=== PATIENT | male | born 1950 | race Caucasian/White ===

== ENCOUNTER 2017-08-12 22:58 | Observation (INO) | payer OTHER ==
[2017-08-12] MEDS ORDERED: METOCLOPRAMIDE 5 MG/ML 2 ML VIAL IVP STA (23:19)
[2017-08-12] MEDS ORDERED: diphenhydrAMINE 50 MG/ML 1 ML VIAL IVP STA (23:19)
[2017-08-12] MEDS ORDERED: SODIUM CHLORIDE 0.9% 1,000 ML IV STA (23:19)
[2017-08-12] MEDS ORDERED: MORPHINE SULFATE 2 MG/ML SYRINGE IVP STA (23:20)
--- NOTE | 2017-08-12 23:30 | ED ---
General Adult HPI - General Chief complaint: Headache Stated complaint: Headache Time Seen by Provider: 08/12/17 23:09 Source: patient, RN notes reviewed, old records reviewed Mode of arrival: ambulatory Limitations: no limitations - History of Present Illness Initial comments: This is a 66-year-old male the ER for evaluation. Patient was essay for evasive headache severe headache worse headache of his life. Patient headache last week that was similar but not as bad. Patient has no chronic history of headaches no trauma. Mild nausea and occasional vomiting. No fevers. Noted recent travel history or sick contacts - Related Data Home Medications Medication Instructions Recorded Confirmed No Known Home Medications [No 08/12/17 08/12/17 Known Home Medications] Allergies Allergy/AdvReac Type Severity Reaction Status Date / Time No Known Allergies Allergy Verified 08/12/17 23:23 Review of Systems ROS Statement: Those systems with pertinent positive or pertinent negative responses have been documented in the HPI. ROS Other: All systems not noted in ROS Statement are negative. Past Medical History Past Medical History: No Reported History History of Any Multi-Drug Resistant Organisms: None Reported Past Surgical History: Back Surgery, Hernia Repair Past Psychological History: No Psychological Hx Reported Smoking Status: Never smoker Past Alcohol Use History: None Reported Past Drug Use History: Unable to Obtain General Exam Limitations: no limitations General appearance: alert, in no apparent distress Head exam: Present: atraumatic, normocephalic, normal inspection Eye exam: Present: normal appearance, PERRL, EOMI. Absent: scleral icterus, conjunctival injection, periorbital swelling ENT exam: Present: normal exam, mucous membranes moist Neck exam: Present: normal inspection. Absent: tenderness, meningismus, lymphadenopathy Respiratory exam: Present: normal lung sounds bilaterally. Absent: respiratory distress, wheezes, rales, rhonchi, stridor Cardiovascular Exam: Present: regular rate, normal rhythm, normal heart sounds. Absent: systolic murmur, diastolic murmur, rubs, gallop, clicks GI/Abdominal exam: Present: soft, normal bowel sounds. Absent: distended, tenderness, guarding, rebound, rigid Extremities exam: Present: normal inspection, full ROM, normal capillary refill. Absent: tenderness, pedal edema, joint swelling, calf tenderness Back exam: Present: normal inspection Neurological exam: Present: alert, oriented X3, CN II-XII intact Psychiatric exam: Present: normal affect, normal mood Skin exam: Present: warm, dry, intact, normal color. Absent: rash Course Vital Signs 08/12/17 08/13/17 08/13/17 23:04 00:37 01:11 Temperature 98.1 F Pulse Rate 45 L 53 L 62 Respiratory 18 18 Rate Blood Pressure 138/88 129/72 O2 Sat by Pulse 96 97 97 Oximetry 08/13/17 01:58 Temperature 97.1 F L Pulse Rate 53 L Respiratory 14 Rate Blood Pressure 114/57 O2 Sat by Pulse 100 Oximetry Medical Decision Making - Medical Decision Making 66 male the ER for evasive acute headache. Headache is improved control. Patient does have erythematous venous system unsure of etiology, patient will be admitted for monitoring, MRI in the morning - Lab Data Result diagrams: 08/12/17 23:46 08/12/17 23:46 Lab Results 08/12/17 08/12/17 08/12/17 Range/Units 23:46 23:46 23:46 WBC 8.8 (3.8-10.6) k/uL RBC 4.66 (4.30-5.90) m/uL Hgb 14.3 (13.0-17.5) gm/dL Hct 42.5 (39.0-53.0) % MCV 91.2 (80.0-100.0) fL MCH 30.7 (25.0-35.0) pg MCHC 33.6 (31.0-37.0) g/dL RDW 13.7 (11.5-15.5) % Plt Count 220 (150-450) k/uL Neutrophils % 56 % Lymphocytes % 32 % Monocytes % 6 % Eosinophils % 3 % Basophils % 1 % Neutrophils # 4.9 (1.3-7.7) k/uL Lymphocytes # 2.8 (1.0-4.8) k/uL Monocytes # 0.5 (0-1.0) k/uL Eosinophils # 0.3 (0-0.7) k/uL Basophils # 0.1 (0-0.2) k/uL PT 10.4 (9.0-12.0) sec INR 1.1 (<1.2) APTT 24.6 (22.0-30.0) sec Sodium 139 (137-145) mmol/L Potassium 4.1 (3.5-5.1) mmol/L Chloride 108 H (98-107) mmol/L Carbon Dioxide 23 (22-30) mmol/L Anion Gap 8 mmol/L BUN 20 (9-20) mg/dL Creatinine 0.70 (0.66-1.25) mg/dL Est GFR (CKD-EPI)AfAm >90 (>60 ml/min/1.73 sqM) Est GFR (CKD-EPI)NonAf >90 (>60 ml/min/1.73 sqM) Glucose 110 H (74-99) mg/dL Calcium 9.4 (8.4-10.2) mg/dL Phosphorus 3.3 (2.5-4.5) mg/dL Magnesium 1.9 (1.6-2.3) mg/dL Total Bilirubin 0.2 (0.2-1.3) mg/dL AST 19 (17-59) U/L ALT 32 (21-72) U/L Alkaline Phosphatase 78 (38-126) U/L Total Protein 6.3 (6.3-8.2) g/dL Albumin 3.7 (3.5-5.0) g/dL - Radiology Data Radiology results: report reviewed (CT brain CT had neck to show some air within the venous system), image reviewed Disposition Clinical Impression: Headache Disposition: ADMITTED IP TO THIS [facility] Condition: Fair Is patient prescribed a controlled substance at d/c from ED?: No
[2017-08-12 23:58] LABS: Basophils # (A) 0.1 k/uL (0-0.2); Basophils % (A) 1 %; Eosinophils # (A) 0.3 k/uL (0-0.7); Eosinophils % (A) 3 %; HCT 42.5 % (39.0-53.0); HGB 14.3 gm/dL (13.0-17.5); Lymphocytes # (A) 2.8 k/uL (1.0-4.8); Lymphocytes % (A) 32 %; MCH 30.7 pg (25.0-35.0); MCHC 33.6 g/dL (31.0-37.0); MCV 91.2 fL (80.0-100.0); Mean Platelet Volume 7.1; Monocytes # (A) 0.5 k/uL (0-1.0); Monocytes % (A) 6 %; Neutrophils # (A) 4.9 k/uL (1.3-7.7); Neutrophils % (A) 56 %; Platelet Count 220 k/uL (150-450); RBC 4.66 m/uL (4.30-5.90); RDW 13.7 % (11.5-15.5); WBC 8.8 k/uL (3.8-10.6)
[2017-08-13 00:08] LABS: ALT 32 U/L (21-72); AST 19 U/L (17-59); Albumin 3.7 g/dL (3.5-5.0); Alkaline Phosphatase 78 U/L (38-126); Anion Gap 8 mmol/L; Blood Urea Nitrogen 20 mg/dL (9-20); Calcium 9.4 mg/dL (8.4-10.2); Carbon Dioxide 23 mmol/L (22-30); Chloride 108 mmol/L (98-107); Glucose 110 mg/dL (74-99); Magnesium 1.9 mg/dL (1.6-2.3); Phosphorus 3.3 mg/dL (2.5-4.5); Potassium 4.1 mmol/L (3.5-5.1); Sodium 139 mmol/L (137-145); Total Bilirubin 0.2 mg/dL (0.2-1.3); Total Protein 6.3 g/dL (6.3-8.2)
[2017-08-13 00:09] LABS: INR 1.1 (<1.2); Partial Thromboplastin Time 24.6 sec (22.0-30.0); Prothrombin Time 10.4 sec (9.0-12.0)
--- NOTE | 2017-08-13 00:22 | CT ---
EXAMINATION TYPE: CT brain wo con DATE OF EXAM: 08/13/2017 COMPARISON: NONE HISTORY: NO PREV ON SYNAPSE. PT. C/O HEADACHE TODAY CT DLP: HEAD-1116.00 BODY-356.20 mGycm Automated exposure control for dose reduction was used. FINDINGS: Ventricles and sulci appear normal for age. There is no mass effect nor midline shift. There is no si gn of intracranial hemorrhage. The calvarium is intact. There is soft tissue air at the skull base an teriorly. IMPRESSION: NO INTRACRANIAL ABNORMALITY. SOFT TISSUE AIR AT THE SKULL BASE. THERE IS ALSO A SMALL AIR BUBBLE IN T HE SPINAL CANAL AT THIS C2 LEVEL ON THE RIGHT SIDE THAT IS OUTSIDE OF THE THECAL SAC. THIS COULD BE V ENOUS AIR.
--- NOTE | 2017-08-13 00:41 | CT ---
EXAMINATION TYPE: CT angio head neck DATE OF EXAM: 08/13/2017 HISTORY: NO PREV ON SYNAPSE. PT. C/O HEADACHE TODAY COMPARISON: NONE CT DLP: HEAD-1116.00 BODY-356.20 mGycm. Automated Exposure Control for Dose Reduction was Utilized. TECHNIQUE: CTA scan of the neck is performed with IV Contrast, patient injected with 65 mL of Isovue 370, axial images are obtained, coronal and sagittal reformatted images are reviewed. Three-D recons tructed images are created on an independent workstation and reviewed. FINDINGS: There is normal branching pattern of the great vessels on the aortic arch. There is bilateral arteria l flow in the vertebral arteries which are fairly symmetric. There is arterial flow in the common int ernal and external carotid arteries bilaterally. There is arterial flow in the vertebrobasilar artery system. There is arterial flow in the anterior middle and posterior cerebral arteries. There are num erous air bubbles in the soft tissues at the skull base. There is also air bubble around the sella tu rcica there is probably in the cavernous sinus. There is normal contrast opacification of the venous sinuses at the skull base. I see no evidence of aneurysm or neovascularity. There is no mass effect. There is no evidence of coleen nosis. IMPRESSION: Negative CT angiogram of the neck. Negative CT angiogram of the brain. No arterial abnormality identi fied. Soft tissue air that is probably in the venous structures of the cavernous sinus epidural veins at th e C1 level, the comic book designer muscles at the skull base anteriorly. There is also apparent small air elina bles in the subclavian veins. Correlation with any intravenous therapy recently is recommended. This exam was discussed with ER physician at 12:30 AM.
[2017-08-13] MEDS ORDERED: SODIUM CHLORIDE 0.9% 1,000 ML IV ONE (01:44)
[2017-08-13] MEDS ORDERED: ONDANSETRON 4 MG/2 ML VIAL IVP PRN (01:45)
[2017-08-13] MEDS ORDERED: ONDANSETRON 4 MG/2 ML VIAL IVP STA (01:45)
[2017-08-13] MEDS ORDERED: MORPHINE SULFATE 2 MG/ML SYRINGE IVP PRN ×2 (01:45→14:12)
[2017-08-13] MEDS ORDERED: ACETAMINOPHEN TAB 325 MG TAB PO PRN (14:13)
[2017-08-13] MEDS ORDERED: IBUPROFEN 800 MG TAB PO PRN (14:13)
[2017-08-13] MEDS ORDERED: SODIUM CHLORIDE 0.9% 1,000 ML IV SCH (14:15)
--- NOTE | 2017-08-13 14:23 | P.HPIM ---
History of Present Illness H&P Date: 08/13/17 Chief Complaint: Headache This is a 66-year-old male with no significant past medical history who presented to the emergency room with worsening headache. Patient said that his headache started yesterday around noon and lasted for a few hours. Patient said that the headache was mostly in the frontal area radiating to the right side of his head and back to the right side of his neck. Patient said that the headache was 10 out of 10 in severity and lasted up to 4 hours. This was associated with nausea. No vision change. No trauma or fall. Patient said that he has been having episodes of headache approximately once a week for the past 1 month. He describes his headache as mild at the time. He was mostly in the frontal area. 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 He usually get the headache for one hour before he is able to fall asleep and when he wakes up headache would be gone. Patient was evaluated in the emergency room. He underwent computed tomography scan of the brain and CT angiogram of the brain and neck. CT angiogram of the neck and brain were both negative. There was findings noted with soft tissue air that was possibly within the venous structures of the cavernous sinus at the C1 level. There was also air bubbles described in the subclavian veins. Patient himself denies any recent surgical procedure Review of Systems Review of system: 14 points review of systems were obtained and were negative except to what were mentioned in the HPI. Past Medical History Past Medical History: No Reported History Additional Past Medical History / Comment(s): "urine blockage that was fixed" History of Any Multi-Drug Resistant Organisms: None Reported Past Surgical History: Back Surgery, Hernia Repair Past Anesthesia/Blood Transfusion Reactions: No Reported Reaction Past Psychological History: No Psychological Hx Reported Smoking Status: Never smoker Past Alcohol Use History: None Reported Past Drug Use History: None Reported - Past Family History Mother Family Medical History: Cancer Additional Family Medical History / Comment(s): breast cancer, cataracts, back surgeries, knee and hip replacements Father Family Medical History: Diabetes Mellitus Additional Family Medical History / Comment(s): eye surgery, malaria, agent orange exposure Brother(s) Family Medical History: No Reported History Sister(s) Family Medical History: No Reported History Son(s) Family Medical History: No Reported History Medications and Allergies Home Medications Medication Instructions Recorded Confirmed Type No Known Home Medications [No 08/12/17 08/12/17 History Known Home Medications] Allergies Allergy/AdvReac Type Severity Reaction Status Date / Time No Known Allergies Allergy Verified 08/12/17 23:23 Physical Exam Vitals: Vital Signs Temp Pulse Pulse Resp BP BP Pulse Ox 08/13/17 07:35 98.0 F 55 L 18 130/78 96 08/13/17 02:35 14 08/13/17 01:58 97.1 F L 53 L 14 114/57 100 08/13/17 01:11 62 97 08/13/17 00:37 53 L 18 129/72 97 08/12/17 23:04 98.1 F 45 L 18 138/88 96 Intake and Output 08/12/17 08/13/17 08/13/17 22:59 06:59 14:59 Intake Total 300 400 Balance 300 400 Intake: IV 300 Sodium Chloride 0.9% 1, 300 000 ml @ 100 mls/hr IV . Q10H ONE Rx#:[id number] Oral 400 Other: Voiding Method Toilet Toilet # Voids 1 Weight 79.379 kg General: The patient is awake and alert, in no distress Eye: there is normal conjunctiva bilaterally. Neck: The neck is supple, there is no JVD. Cardiovascular: Normal S1-S2, no S3-S4, no murmurs. Respiratory: Lungs clear to auscultation bilaterally Gastrointestinal: Abdomen is soft, nontender Musculoskeletal: There is no pedal edema. Neurological:. Speech is normal. Skin: Skin is warm and dry Results CBC & Chem 7: 08/12/17 23:46 08/12/17 23:46 Labs: Abnormal Lab Results - Last 24 Hours (Table) 08/12/17 Range/Units 23:46 Chloride 108 H (98-107) mmol/L Glucose 110 H (74-99) mg/dL Thrombosis Risk Factor Assmnt - Choose All That Apply Any of the Below Risk Factors Present?: No Other Risk Factors: Yes Each Risk Factor Represents 2 Points: Age 61-74 years Other congenital or acquired thrombophilia - If yes, enter type in comment: No Thrombosis Risk Factor Assessment Total Risk Factor Score: 2 Thrombosis Risk Factor Assessment Level: Low Risk Assessment and Plan Assessment: 1. Recurrent headache 2. Suspected air emboli involving the cavernous sinus 3. Air bubbles in the subclavian veins Patient is doing better now. Headache has resolved. CT brain and CT angiogram reviewed. Awaiting MRA/MRV to be done today at 4:30. Source of this air emboli is unclear to me. Patient did not have any procedure, central line, or trauma that he can recall. No history of IV drug use. The findings confirmed on MRV patient will be transferred to tertiary care facility for neurosurgery evaluation.
--- NOTE | 2017-08-13 15:36 | P.CNNES ---
History of Present Illness Consult date: 08/13/17 Reason for Consult: Patient admitted with intractable headache pain of sudden onset. History of Present Illness: This patient is a 66-year-old right-handed white male who was in his usual state of health as of yesterday. Patient states he was driving himself to work when he had developed severe onset of severe headache pain. The headache started about noon time and lasted for more than 4 hours in duration. Patient describes the intensity of the headache at the time as 10 over 10. He states this is the worst headache he has ever experienced in his lifetime. Over the last 1 month he has experienced occasional headaches that may last 1 hour or so when quickly dissipate. He has had 5 such headaches in the past month. The headache yesterday however was very intense and intractable. He did not experience any nausea vomiting with the headache symptoms but was unable to work. He returned home and his immediately brought him to the emergency room for further evaluation. He was seen in the ER by Dr. Bruce. He was sent for a computed tomography scan of the brain as well as a CT angiogram of the head and neck. Computed tomography scan of the brain revealed no intracranial abnormality. There was soft tissue air at the skull base. There was also a small air bubble in the spinal canal at the level of C2. This is noted on the right side only. It was outside of the thecal sac. This was suggestion of possible venous air. CTA angiogram of the head and neck was also completed yesterday and revealed no arterial abnormality. There was still evidence for soft tissue air probably in the venous structure of the cavernous sinus and epidural veins at the level of C1. There was also apparent small air bubbles in the subclavian veins. Patient subsequently was admitted to the hospital. He states he was treated for the headache with pain medications and this did work in his headaches have completely resolved this afternoon. He states that headaches resolved by 8 AM this morning. As noted he has had headaches but nothing as severe as the episode just today. The patient is being evaluated with MRA and MRV to be done at 4:30 this afternoon. We do need to confirm whether there is true evidence of air in the venous system and/or pneumatoceles. This definitely could cause severe headache pain and if it is positive on his MRV he will require transfer to a tertiary center for neurosurgery consultation. Patient is resting comfortably at this time. We will continue to monitor his condition closely during this admission. We will await the results of the MRA and MRV and will give further recommendations. Patient denies any neck pain. He has no signs of meningitis. He states currently he is completely headache free. The other consideration for this patient could be possibility of cluster headaches. We will await further recommendations pending the results of his MRA and MRV. His overall prognosis at this time remains guarded. Review of Systems Constitutional: Denies chills, Denies fever Eyes: denies blurred vision, denies pain Ears, nose, mouth and throat: Denies headache, Denies sore throat Cardiovascular: Denies chest pain, Denies shortness of breath Respiratory: Denies cough Gastrointestinal: Denies abdominal pain, Denies diarrhea, Denies nausea, Denies vomiting Musculoskeletal: Denies myalgias Integumentary: Denies pruritus, Denies rash Neurological: Reports headaches, Denies numbness, Denies weakness Psychiatric: Denies anxiety, Denies depression Endocrine: Denies fatigue, Denies weight change Past Medical History Past Medical History: No Reported History Additional Past Medical History / Comment(s): "urine blockage that was fixed" History of Any Multi-Drug Resistant Organisms: None Reported Past Surgical History: Back Surgery, Hernia Repair Past Anesthesia/Blood Transfusion Reactions: No Reported Reaction Past Psychological History: No Psychological Hx Reported Smoking Status: Never smoker Past Alcohol Use History: None Reported Past Drug Use History: None Reported - Past Family History Mother Family Medical History: Cancer Additional Family Medical History / Comment(s): breast cancer, cataracts, back surgeries, knee and hip replacements Father Family Medical History: Diabetes Mellitus Additional Family Medical History / Comment(s): eye surgery, malaria, agent orange exposure Brother(s) Family Medical History: No Reported History Sister(s) Family Medical History: No Reported History Son(s) Family Medical History: No Reported History Medications and Allergies Home Medications Medication Instructions Recorded Confirmed Type No Known Home Medications [No 08/12/17 08/12/17 History Known Home Medications] Allergies Allergy/AdvReac Type Severity Reaction Status Date / Time No Known Allergies Allergy Verified 08/12/17 23:23 Physical Examination - Vital Signs Vital Signs: Vital Signs Temp Pulse Pulse Resp BP BP Pulse Ox 08/13/17 07:35 98.0 F 55 L 18 130/78 96 08/13/17 02:35 14 08/13/17 01:58 97.1 F L 53 L 14 114/57 100 08/13/17 01:11 62 97 08/13/17 00:37 53 L 18 129/72 97 08/12/17 23:04 98.1 F 45 L 18 138/88 96 Intake and Output 08/13/17 08/13/17 08/13/17 06:59 14:59 22:59 Intake Total 300 400 Balance 300 400 Intake: IV 300 Sodium Chloride 0.9% 1, 300 000 ml @ 100 mls/hr IV . Q10H ONE Rx#:[id number] Oral 400 Other: Voiding Method Toilet Toilet # Voids 1 Weight 79.379 kg - Constitutional General appearance: average body habitus, cooperative - EENT EENT: PERRL, mucous membranes moist - Respiratory Respiratory: lungs clear, normal breath sounds - Cardiovascular Cardiovascular: regular rate, normal S1, normal S2 Extremities: no peripheral edema bilaterally - Gastrointestinal Gastrointestinal: normoactive bowel sounds - Integumentary Integumentary: normal - Neurologic Cranial nerve examination: PERRL, EOMI, VFF, V1/V2/V3 grossly intact, face symmetric, intact gag reflex, intact corneal reflex, normal palatal elevation Speech examination: intact Sensorimotor examination: intact Motor examination - right side: 4/5: biceps, triceps, wrist flexion, wrist extension, resource recovery engineer, hip flexors, knee extensors, dorsiflexion, toe extension (EHL) , plantarflexion Motor examination - left side: 4/5: biceps, triceps, wrist flexion, wrist extension, resource recovery engineer, hip flexors, knee extensors, dorsiflexion, toe extension (EHL) , plantarflexion Detailed sensory examination: intact Reflex and gait examination: intact Reflexes: 1+: ankle, bicep, knee, tricep - Musculoskeletal Musculoskeletal: no pain - Psychiatric Psychiatric: mood/affect appropriate, cooperative Results - Laboratory Findings CBC and BMP: 08/12/17 23:46 08/12/17 23:46 Abnormal Lab Findings: Abnormal Labs 08/12/17 23:46 Chloride 108 H Glucose 110 H Assessment and Plan (1) Intractable headache Current Visit: Yes Status: Acute Code(s): R51 - HEADACHE SNOMED Code(s): 10601492 (2) Intracranial pneumatocele Current Visit: Yes Status: Acute Code(s): G93.89 - OTHER SPECIFIED DISORDERS OF BRAIN SNOMED Code(s): 61895328 (3) Cluster headache Current Visit: Yes Status: Acute Code(s): G44.009 - CLUSTER HEADACHE SYNDROME, UNSPECIFIED, NOT INTRACTABLE SNOMED Code(s): 446102302 (4) Previous back surgery Current Visit: Yes Status: Acute Code(s): Z98.890 - OTHER SPECIFIED POSTPROCEDURAL STATES SNOMED Code(s): 203726965 Plan: This patient is a 66-year-old male who was admitted to hospital yesterday with the worst headache of his life. Patient was on his way to work when he developed sudden onset of severe headache pain. The headache pain was intractable and he scored it as 10 over 10 in intensity. He has never had such a severe headache in his life. Symptoms came on suddenly. He was brought into the emergency room at [facility] for further evaluation. He was seen in the ER by Dr. Jacome and was sent for computed tomography scan of the brain and CTA angiogram of the head and neck. Results are as noted above. Patient was found to have evidence suggesting possibility of air bubble in the cavernous sinus. He is scheduled to undergo MRA and MRV of the brain this afternoon for further evaluation. Patient is headache free at this time and was treated with analgesics earlier in the day. Headaches completely resolved at 8 AM this morning. Depending on the results of the MRA and MRV patient may require further evaluation and tertiary center for neurosurgery consultation. We have discussed these findings in detail with the patient at this time. He is headache free at this time. The differential diagnosis would also include possibility of cluster headaches. We will await the results of his MRA and MRV and we'll give further recommendations. His overall prognosis at this time remains guarded. Time with Patient: Greater than 30
--- NOTE | 2017-08-14 09:21 | MR ---
EXAMINATION TYPE: MR MRA/MRV head wo con DATE OF EXAM: 08/14/2017 COMPARISON: CT 08/12/2012 HISTORY: 66-year-old male Severe Headache, Air embolism TECHNIQUE: Time of flight images focusing on the [place] were performed without contrast.. 2-D and 3-D postprocessing imaging is performed. FINDINGS: MRA: There is a tiny central filling defect within the distal V4 segment right vertebral artery near the b asilar artery confluence, refer to axial image 47. Otherwise, the anterior and posterior circulations are patent without significant stenosis or arteria l lesion. There is a 3 mm focal outpouching projecting posteriorly from the clinoid segment left internal carot id artery, reference axial image 93. MRV: The left transverse sinus is hypoplastic which is not an uncommon congenital variation. The dural levon ous sinuses otherwise appear patent. The foci of air located within the cavernous sinus is seen on CT of 08/12/2017 is not well demonstrated by MRV. IMPRESSION: MRA: 1. Nonocclusive small central filling defect within the distal V4 segment right vertebral artery near the basilar artery confluence could represent a nonocclusive clot or some loose plaque. Follow-up re commended. 2. 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 3. Otherwise, no significant stenosis or arterial occlusion MRV: 1. 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 2. The cavernous sinus air seen on CT of 08/12/2017 is not well-demonstrated by MRV. 3. No dural venous sinus thrombosis or occlusion is identified.
--- NOTE | 2017-08-14 14:07 | P.PN ---
Subjective Progress Note Date: 08/14/17 This patient is a 66-year-old right-handed white male who was seen yesterday on neurology consultation for evaluation of severe headache pain. Patient presented to the emergency room and underwent a CAT scan of the brain which revealed questionable area of air in the cavernous sinus region of the brain. The patient was admitted to the hospital and underwent a MRA MRV study today for further follow-up and evaluation. Results of the MRA of the brain done today on 08/14/2017 revealed evidence of a nonocclusive small central filling defect in the distal V4 segment of the right vertebral artery near the basilar artery compliance. This was suggesting possibly nonocclusive clot or some plaque material. Follow-up was recommended. 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 The cavernous sinus air seen on computed tomography scan done on 08/12/2017 was not well demonstrated by MRV. No dural venous sinus thrombosis or occlusion was identified. Results of the MRA and MRV were discussed with the patient and his . Even though there is finding of a cerebral aneurysm it is still not felt to be the cause of his severe headache on admission. He continues to remain headache free today. He has been headache free now for 2 days. The differential diagnosis would also include cluster headache as a possible cause. Given the findings of his MRA and MRV we did discuss these findings in detail with the patient and his . We are recommending he should be evaluated in the neurosurgery clinic at a tertiary Center for their expert opinion. Both are in agreement and we will make arrangements to have this patient transferred [facility] neurosurgery clinic for evaluation. Case was discussed today with the admitting physician Dr. Mathew in detail especially the results of the MRA and MRV. He is in agreement with our recommendation to have this patient transferred for neurosurgical consultation to a tertiary center soon as possible. Arrangements are now being made by Dr. Mathew who will arrange for this transfer process. Patient advised to follow-up in the outpatient neurology clinic in 3-4 weeks after receiving recommendations from neurosurgery. Currently the size of the left ICA aneurysm is very small at 3 mm. This likely will not require any immediate surgical intervention but should be closely monitored on a yearly basis. We have discussed all of these findings in detail with the patient and his . They understand our reasoning for neurosurgical consultation today. We will continue to follow his progress closely during this admission. Objective - Vital Signs Vital signs: Vital Signs Temp 97.7 F 08/14/17 08:00 Pulse 58 L 08/14/17 08:00 Resp 16 08/14/17 08:00 BP 127/62 08/14/17 08:00 Pulse Ox 93 L 08/14/17 08:00 Intake & Output 08/13/17 08/14/17 08/14/17 18:59 06:59 18:59 Intake Total 700 Balance 700 Intake: Oral 700 Other: Voiding Method Toilet Toilet - Exam Physical examination: PHYSICAL EXAMINATION: Patient is resting comfortably in bed. VITAL SIGNS: Blood pressure is [127/62]. Heart rate is [58]. Respiration is [16] . Temperature is [97.7]. HEENT: Head is atraumatic, neck is supple, there were no carotid bruits. CHEST: Lungs are clear to auscultation and percussion. CARDIAC: S1, S2 normal rate and rhythm. There is no murmur. ABDOMEN: Soft and nontender. Bowel sounds are present. EXTREMITIES: There is no pedal edema. Peripheral pulses are present. Neurological examination: Patient has a nonfocal neurological examination at this time. He is headache free at this time. He has no focal motor deficit and no signs of nuchal rigidity or meningismus. - Labs CBC & Chem 7: 08/12/17 23:46 08/12/17 23:46 Assessment and Plan (1) Intractable headache Current Visit: Yes Status: Acute Code(s): R51 - HEADACHE SNOMED Code(s): 95339690 (2) Intracranial pneumatocele Current Visit: Yes Status: Acute Code(s): G93.89 - OTHER SPECIFIED DISORDERS OF BRAIN SNOMED Code(s): 86279936 (3) Cluster headache Current Visit: Yes Status: Acute Code(s): G44.009 - CLUSTER HEADACHE SYNDROME, UNSPECIFIED, NOT INTRACTABLE SNOMED Code(s): 523597543 (4) Previous back surgery Current Visit: Yes Status: Acute Code(s): Z98.890 - OTHER SPECIFIED POSTPROCEDURAL STATES SNOMED Code(s): 535557634 Plan: This patient is a 66-year-old male who was admitted hospital with severe intractable headache pain. He was initially treated in the ER with pain medication and did show couldn't suitable improvement and has remained headache free since admission to the hospital. He underwent an initial computed tomography scan of the brain which revealed questionable area of air in the cavernous sinus. He underwent further testing today with a MRA and MRV. Results are as noted above. There is some major findings on the MRA and MRV and we have reviewed these findings in detail with Dr. Dennis in detail. Given the finding of a central filling defect in the right vertebral artery as well as a 3 mm left ICA cerebral aneurysm we have recommended neurosurgical consultation for this patient. We have reviewed the results of the MRA and MRV with the patient and his in detail. All of their questions were answered. Patient will be transferred to [facility] neurosurgical unit for further evaluation and recommendations. Dr. Mathew will make arrangements for transfer this patient today by EMS. His overall prognosis remains very guarded. Patient may follow-up in the outpatient neurology clinic in 3-4 weeks following his further evaluation at [facility].
--- NOTE | 2017-08-14 14:44 | P.DS ---
Providers Date of admission: 08/13/17 01:45 Expected date of discharge: 08/14/17 Attending physician: Geri Benson Consults: 08/13/17 14:12 Consult Physician Routine Consulting Provider: Deedee Oleary Consult Reason/Comments: headache Do you want consulting provider notified?: Yes Primary care physician: Norma Petersen [facility] Course: This is a 66-year-old male with no significant past medical history who presented to the emergency room with worsening headache that started all of a sudden mostly in the frontal area of his head radiating to the right side and to the back of his head. Patient said that the pain was 10 out of 10 in severity. There was no trauma or fall involved. Patient did not have any other neurological symptoms. He was evaluated in the emergency room and computed tomography scan of the brain showed no acute intracranial findings. Patient underwent a CT angiogram of the head and neck showing questionable soft tissue air in the venous structure of the cavernous sinus vein at the C1 level with questionable small air bubbles in the subclavian vein. Patient was placed on observation. He underwent MRA/MRV. 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 The cavernous sinus area noted on CT was not demonstrated on MRV. MRA showed incidental findings of a nonocclusive small central filling involving the right vertebral artery concerning for a possible nonocclusive clot versus loose plaque. Patient was also noted to have a 3 mm aneurysm involving the left ICA. Patient was seen and evaluated by neurology. His headache has completely resolved. He does not have any other neurological symptoms on presentation or at this time. Given the findings on MRA neurology did not feel comfortable to clear patient to be discharged home. They are requesting neurosurgery consultation. No neurosurgery service is available in [place]. Patient will be transferred to [facility]. I spoke to the accepting physician who kindly accepted the patient to be transferred to observation with neurosurgery consultation. Patient was updated about his current condition and he is agreeable to the plan. Patient Condition at Discharge: Fair Plan - Discharge Summary Discharge Rx Participant: No New Discharge Prescriptions: No Action No Known Home Medications [No Known Home Medications] Discharge Medication List No Known Home Medications [No Known Home Medications] 08/12/17 [History] Follow up Appointment(s)/Referral(s): Norma Petersen MD [Primary Care Provider] - 1-2 days Patient Instructions/Handouts: Acute Headache (ED)
[2017-08-14 15:44] VITALS: BP 155/85; PULSE 56; RESP 18; TEMP 98.2
== END 2017-08-14 16:25 ==
LOC: EC 22:58 → 3OBS 08-13 01:45
PROVIDERS: ADMIT Internal Medicine; ATTEND Internal Medicine
DX: R51 Headache (principal); R11.2 Nausea with vomiting, unspecified; I72.0 Aneurysm of carotid artery; G93.89 Other specified disorders of brain; I87.8 Other specified disorders of veins; Z98.890 Other specified postprocedural states; Z80.3 Family history of malignant neoplasm of breast; Z82.69 Family history of other diseases of the musculoskeletal system and connective tissue; Z83.3 Family history of diabetes mellitus; Z83.518 Family history of other specified eye disorder; Z83.1 Family history of other infectious and parasitic diseases
CPT/HCPCS: 99285 ×2; 96374 ×2; 96375 ×3; 96361 ×3; 96376; 36415; 80053; 84443; 83735; 84100; 85025; 85610; 85730; 70496; 70450; 70498; 70544; G0378 ×2; J1200; J2765; J2270 ×2; Q9967

== ENCOUNTER → 2018-03-29 | Outpatient (CLI) | payer OTHER ==
--- NOTE | 2018-03-29 13:04 | EST ---
EXERCISE STRESS AGE: 67 SEX: M HT: 6'0" WT: 165 PROTOCOL: Xander Stress Test STAGE: 4 DURATION OF EXERCISE: 10:00 HEART RATE REST: 71 BLOOD PRESSURE REST: 133/80 MAXIMUM HEART RATE ACHIEVED: 124 MAXIMUM BLOOD PRESSURE: 171/86 85% MPHR: 132 100% MPHR: 155 METS: 11.7 INDICATIONS: Irregular heartbeat. CLINICAL INFORMATION: Patient was exercised for a total period of 10 minutes. Peak heart rate of 124 was achieved maximum blood pressure 171/86 mmHg was noted. Patient did not complain of any chest pain during the test. The resting EKG shows normal sinus rhythm with normal MA interval and QRS duration and normal ST-T waves. No ST-segment depression suggestive of ischemia was noted. Occasional PACs and PVCs were noted. FINAL IMPRESSION: 1. This exercise test is not suggestive of ischemia. 2. Patient's exercise tolerance is normal. 3. Occasional premature ventricular contractions and premature atrial contractions were noted. MMODL / IJN: [id number] /
== END | disposition home or self-care (01) ==
LOC: RADNMMAIN 09:25
PROVIDERS: ATTEND Family Medicine
DX: R55 Syncope and collapse (principal)
CPT/HCPCS: 93017

== ENCOUNTER 2019-05-01 22:52 | Emergency (ER) | payer OTHER ==
[2019-05-01 22:56] VITALS: BP 118/74; PULSE 64; RESP 18; TEMP 97.6
[2019-05-01] MEDS ORDERED: KETOROLAC 60 MG/2 ML VIAL IM STA (23:15)
--- NOTE | 2019-05-01 23:27 | ED ---
Extremity Problem HPI - General Chief complaint: Extremity Problem,Nontraumatic Stated complaint: Lf ankle pain Time Seen by Provider: 05/01/19 22:59 Source: patient, RN notes reviewed, old records reviewed Mode of arrival: ambulatory Limitations: no limitations - History of Present Illness Initial comments: Patient is a 68-year-old male who presents the emergency department today for evaluation of left ankle pain. Patient reports that symptoms started yesterday into today. He denies any fall or trauma. Any significant swelling to the ankle and he is aware of. Patient denies any redness, denies history of gout. Patient reports the pain is worse with ambulation. Denies any calf pain or swelling. - Related Data Previous Rx's Medication Instructions Recorded Ibuprofen [Motrin] 600 mg PO Q8HR PRN #20 tab 05/01/19 Allergies Allergy/AdvReac Type Severity Reaction Status Date / Time No Known Allergies Allergy Verified 05/01/19 22:53 Review of Systems ROS Statement: Those systems with pertinent positive or pertinent negative responses have been documented in the HPI. ROS Other: All systems not noted in ROS Statement are negative. Past Medical History Past Medical History: No Reported History Additional Past Medical History / Comment(s): "urine blockage that was fixed" History of Any Multi-Drug Resistant Organisms: None Reported Past Surgical History: Back Surgery, Hernia Repair Past Anesthesia/Blood Transfusion Reactions: No Reported Reaction Past Psychological History: No Psychological Hx Reported Smoking Status: Never smoker Past Alcohol Use History: None Reported Past Drug Use History: None Reported - Past Family History Mother Family Medical History: Cancer Additional Family Medical History / Comment(s): breast cancer, cataracts, back surgeries, knee and hip replacements Father Family Medical History: Diabetes Mellitus Additional Family Medical History / Comment(s): eye surgery, malaria, agent orange exposure Brother(s) Family Medical History: No Reported History Sister(s) Family Medical History: No Reported History Son(s) Family Medical History: No Reported History General Exam - General Exam Comments Initial Comments: 68-year-old male. Alert and oriented. No distress. Limitations: no limitations General appearance: alert, in no apparent distress Head exam: Present: atraumatic, normocephalic, normal inspection Eye exam: Present: normal appearance ENT exam: Present: normal exam, mucous membranes moist Neck exam: Present: normal inspection. Absent: tenderness, meningismus, lymphadenopathy Respiratory exam: Present: normal lung sounds bilaterally. Absent: respiratory distress, wheezes, rales, rhonchi, stridor Cardiovascular Exam: Present: regular rate, normal rhythm, normal heart sounds. Absent: systolic murmur, diastolic murmur, rubs, gallop, clicks GI/Abdominal exam: Present: soft, normal bowel sounds. Absent: distended, tenderness, guarding, rebound, rigid Extremities exam: Present: normal inspection, full ROM, normal capillary refill. Absent: tenderness, pedal edema, joint swelling, calf tenderness Left Knee exam: Present: normal inspection, full ROM Lower Leg exam: Present: normal inspection, tenderness Ankle exam: Present: normal inspection, full ROM, tenderness (Tenderness over the lateral malleolus minimal swelling.) Foot/Toe exam: Present: normal inspection, full ROM Back exam: Present: normal inspection Neurological exam: Present: alert, oriented X3, CN II-XII intact Psychiatric exam: Present: normal affect, normal mood Course Vital Signs 05/01/19 22:53 Temperature 97.6 F Pulse Rate 64 Respiratory 18 Rate Blood Pressure 118/74 O2 Sat by Pulse 98 Oximetry Medical Decision Making - Medical Decision Making 68-year-old male presents today with left ankle pain worse with ambulation. He has had some or swelling noted over the lateral malleolus. Patient has no erythema. Patient has full range of motion noted. Patient was given Toradol for pain relief. X-rays show no acute fracture.The erythema occur break in skin concern for infection or possibly gout. I discussed and temperature medication Mahesh wrap and following up with PCP. - Radiology Data Radiology results: report reviewed Negative left ankle exam Disposition Clinical Impression: Ankle pain Disposition: HOME SELF-CARE Condition: Good Instructions (If sedation given, give patient instructions): Arthralgia (ED) Additional Instructions: Patient admits use the Mahesh wrap to help support the ankle and use anti- inflammatory medication as prescribed. Patient should rest, ice the ankle as well. Monitor for any signs of skin changes. Follow-up with PCP or orthopedic if symptoms continue persist. Prescriptions: Ibuprofen [Motrin] 600 mg PO Q8HR PRN #20 tab PRN Reason: Pain Is patient prescribed a controlled substance at d/c from ED?: No Referrals: Norma Petersen MD [Primary Care Provider] - 1-2 days Time of Disposition: 23:48
--- NOTE | 2019-05-01 23:41 | XR ---
EXAMINATION TYPE: XR ankle complete LT DATE OF EXAM: 05/01/2019 COMPARISON: NONE HISTORY: Ankle pain TECHNIQUE: 3 views FINDINGS: Ankle mortise is anatomic. I see no fracture nor dislocation. Joint spaces are normal. IMPRESSION: Negative left ankle exam.
== END 2019-05-02 00:15 | disposition home or self-care (01) ==
LOC: EC 22:52
DX: M25.572 Pain in left ankle and joints of left foot (principal); M25.472 Effusion, left ankle
CPT/HCPCS: 73610; 99284; 96372; J1885

== ENCOUNTER 2020-06-17 22:39 | Emergency (ER) | payer OTHER ==
--- NOTE | 2020-06-17 23:29 | XR ---
EXAMINATION TYPE: XR chest 2V DATE OF EXAM: 06/17/2020 COMPARISON: NONE HISTORY: Chest pain TECHNIQUE: 2 views FINDINGS: Heart and mediastinum are normal. Lungs are clear. Diaphragm is normal. Bony thorax is inta ct. IMPRESSION: Normal chest.
[2020-06-17 23:30] LABS: Basophils % (A) 0 %; Eosinophils # (A) 0.2 k/uL (0-0.7); Eosinophils % (A) 2 %; HCT 42.5 % (39.0-53.0); HGB 14.5 gm/dL (13.0-17.5); Lymphocytes # (A) 2.9 k/uL (1.0-4.8); Lymphocytes % (A) 32 %; MCH 31.3 pg (25.0-35.0); MCV 91.9 fL (80.0-100.0); Monocytes # (A) 0.7 k/uL (0-1.0); Monocytes % (A) 8 %; Neutrophils # (A) 5.1 k/uL (1.3-7.7); Neutrophils % (A) 56 %; Platelet Count 229 k/uL (150-450); RBC 4.62 m/uL (4.30-5.90); RDW 13.5 % (11.5-15.5)
[2020-06-17 23:42] LABS: ALT 14 U/L (4-49); AST 28 U/L (17-59); African American GFR (CKD) >90 (>60 ml/min/1.73 sqM); Alkaline Phosphatase 89 U/L (38-126); Anion Gap 10 mmol/L; Blood Urea Nitrogen 14 mg/dL (9-20); Calcium 9.7 mg/dL (8.4-10.2); Carbon Dioxide 19 mmol/L (22-30); Chloride 112 mmol/L (98-107); Glucose 92 mg/dL (74-99); Non-African American GFR(CKD) >90 (>60 ml/min/1.73 sqM); Sodium 141 mmol/L (137-145); Total Bilirubin 0.6 mg/dL (0.2-1.3); Total Protein 7.2 g/dL (6.3-8.2)
[2020-06-17 23:49] LABS: INR 1.1 (<1.2); Partial Thromboplastin Time 29.7 sec (22.0-30.0); Prothrombin Time 11.5 sec (9.0-12.0)
--- NOTE | 2020-06-18 01:28 | ED ---
URI HPI - General Chief Complaint: Chest Pain Stated Complaint: Chest Pain Time Seen by Provider: 06/18/20 01:11 Source: patient, RN notes reviewed, old records reviewed Mode of arrival: ambulatory Limitations: no limitations - History of Present Illness Initial Comments: This is a 69-year-old male DF for evaluation patient Dese for evaluation regards to this weakness shortness of breath cough and congestion possible coronavirus. Patient has no recent illnesses. No recent change in symptoms. No nausea vomiting. No diarrhea no abdominal pain. Just shortness of breath all symptoms of shortness of breath started tonight Complaint: fever, cough, sore throat -: hour(s) Severity: moderate Severity scale (1-10): 4 Consistency: constant Improves With: nothing Worsens With: nothing Context: sick contacts Associated Symptoms: fever, chills, myalgias, nasal congestion, sore throat Treatments Prior to Arrival: none - Related Data Previous Rx's Medication Instructions Recorded Ibuprofen [Motrin] 600 mg PO Q8HR PRN #20 tab 05/01/19 Allergies Allergy/AdvReac Type Severity Reaction Status Date / Time No Known Allergies Allergy Verified 06/17/20 22:50 Review of Systems ROS Statement: Those systems with pertinent positive or pertinent negative responses have been documented in the HPI. ROS Other: All systems not noted in ROS Statement are negative. Past Medical History Past Medical History: No Reported History Additional Past Medical History / Comment(s): "urine blockage that was fixed" History of Any Multi-Drug Resistant Organisms: None Reported Past Surgical History: Back Surgery, Hernia Repair Past Anesthesia/Blood Transfusion Reactions: No Reported Reaction Past Psychological History: No Psychological Hx Reported Smoking Status: Current every day smoker Past Alcohol Use History: None Reported Past Drug Use History: None Reported - Past Family History Mother Family Medical History: Cancer Additional Family Medical History / Comment(s): breast cancer, cataracts, back surgeries, knee and hip replacements Father Family Medical History: Diabetes Mellitus Additional Family Medical History / Comment(s): eye surgery, malaria, agent orange exposure Brother(s) Family Medical History: No Reported History Sister(s) Family Medical History: No Reported History Son(s) Family Medical History: No Reported History General Exam Limitations: no limitations General appearance: alert, in no apparent distress, anxious Head exam: Present: atraumatic, normocephalic, normal inspection Eye exam: Present: normal appearance, PERRL, EOMI. Absent: scleral icterus, conjunctival injection, periorbital swelling ENT exam: Present: normal exam, mucous membranes moist Neck exam: Present: normal inspection. Absent: tenderness, meningismus, lymphadenopathy Respiratory exam: Present: normal lung sounds bilaterally. Absent: respiratory distress, wheezes, rales, rhonchi, stridor Cardiovascular Exam: Present: regular rate, normal rhythm, normal heart sounds. Absent: systolic murmur, diastolic murmur, rubs, gallop, clicks GI/Abdominal exam: Present: soft, normal bowel sounds. Absent: distended, tenderness, guarding, rebound, rigid Extremities exam: Present: normal inspection, full ROM, normal capillary refill. Absent: tenderness, pedal edema, joint swelling, calf tenderness Back exam: Present: normal inspection Neurological exam: Present: alert, oriented X3, CN II-XII intact Psychiatric exam: Present: normal affect, normal mood Skin exam: Present: warm, dry, intact, normal color. Absent: rash Course Vital Signs 06/17/20 06/17/20 06/18/20 22:45 23:48 01:00 Temperature 97.8 F 98.1 F Pulse Rate 86 71 Respiratory 22 22 20 Rate Blood Pressure 131/78 114/75 O2 Sat by Pulse 95 99 Oximetry 06/18/20 04:20 Temperature 97.7 F Pulse Rate 52 L Respiratory 18 Rate Blood Pressure 96/54 O2 Sat by Pulse 99 Oximetry - Reevaluation(s) Reevaluation #1: Medical record is reviewed Symptoms improved here in the ER Patient informed of results and questions answered Medical Decision Making - Medical Decision Making 69 male DF positive for coronavirus. Patient is otherwise in good health. Patient can be discharged home, patient was given BAM here in the ER - Lab Data Result diagrams: 06/17/20 23:02 06/17/20 23:02 Lab Results 06/17/20 06/17/20 06/17/20 Range/Units 23:02 23:02 23:02 WBC 9.0 (3.8-10.6) k/uL RBC 4.62 (4.30-5.90) m/uL Hgb 14.5 (13.0-17.5) gm/dL Hct 42.5 (39.0-53.0) % MCV 91.9 (80.0-100.0) fL MCH 31.3 (25.0-35.0) pg MCHC 34.0 (31.0-37.0) g/dL RDW 13.5 (11.5-15.5) % Plt Count 229 (150-450) k/uL MPV 8.0 Neutrophils % 56 % Lymphocytes % 32 % Monocytes % 8 % Eosinophils % 2 % Basophils % 0 % Neutrophils # 5.1 (1.3-7.7) k/uL Lymphocytes # 2.9 (1.0-4.8) k/uL Monocytes # 0.7 (0-1.0) k/uL Eosinophils # 0.2 (0-0.7) k/uL Basophils # 0.0 (0-0.2) k/uL PT 11.5 (9.0-12.0) sec INR 1.1 (<1.2) APTT 29.7 (22.0-30.0) sec Sodium 141 (137-145) mmol/L Potassium 4.0 (3.5-5.1) mmol/L Chloride 112 H (98-107) mmol/L Carbon Dioxide 19 L (22-30) mmol/L Anion Gap 10 mmol/L BUN 14 (9-20) mg/dL Creatinine 0.78 (0.66-1.25) mg/dL Est GFR (CKD-EPI)AfAm >90 (>60 ml/min/1.73 sqM) Est GFR (CKD-EPI)NonAf >90 (>60 ml/min/1.73 sqM) Glucose 92 (74-99) mg/dL Calcium 9.7 (8.4-10.2) mg/dL Total Bilirubin 0.6 (0.2-1.3) mg/dL AST 28 (17-59) U/L ALT 14 (4-49) U/L Alkaline Phosphatase 89 (38-126) U/L Troponin I (0.000-0.034) ng/mL Total Protein 7.2 (6.3-8.2) g/dL Albumin 4.0 (3.5-5.0) g/dL Influenza Type A (PCR) (Not Detectd) Influenza Type B (PCR) (Not Detectd) RSV (PCR) (Not Detectd) SARS-CoV-2 (PCR) (Not Detectd) 06/17/20 06/17/20 Range/Units 23:02 23:46 WBC (3.8-10.6) k/uL RBC (4.30-5.90) m/uL Hgb (13.0-17.5) gm/dL Hct (39.0-53.0) % MCV (80.0-100.0) fL MCH (25.0-35.0) pg MCHC (31.0-37.0) g/dL RDW (11.5-15.5) % Plt Count (150-450) k/uL MPV Neutrophils % % Lymphocytes % % Monocytes % % Eosinophils % % Basophils % % Neutrophils # (1.3-7.7) k/uL Lymphocytes # (1.0-4.8) k/uL Monocytes # (0-1.0) k/uL Eosinophils # (0-0.7) k/uL Basophils # (0-0.2) k/uL PT (9.0-12.0) sec INR (<1.2) APTT (22.0-30.0) sec Sodium (137-145) mmol/L Potassium (3.5-5.1) mmol/L Chloride (98-107) mmol/L Carbon Dioxide (22-30) mmol/L Anion Gap mmol/L BUN (9-20) mg/dL Creatinine (0.66-1.25) mg/dL Est GFR (CKD-EPI)AfAm (>60 ml/min/1.73 sqM) Est GFR (CKD-EPI)NonAf (>60 ml/min/1.73 sqM) Glucose (74-99) mg/dL Calcium (8.4-10.2) mg/dL Total Bilirubin (0.2-1.3) mg/dL AST (17-59) U/L ALT (4-49) U/L Alkaline Phosphatase (38-126) U/L Troponin I <0.012 (0.000-0.034) ng/mL Total Protein (6.3-8.2) g/dL Albumin (3.5-5.0) g/dL Influenza Type A (PCR) Not Detected (Not Detectd) Influenza Type B (PCR) Not Detected (Not Detectd) RSV (PCR) Not Detected (Not Detectd) SARS-CoV-2 (PCR) Detected A (Not Detectd) - EKG Data -: EKG Interpreted by Me (EKG is sinus rhythm 60 TX 146 QRS 80 QTC 388) - Radiology Data Radiology results: report reviewed (Chest x-rays negative for acute disease), image reviewed Disposition Clinical Impression: Coronavirus infection Disposition: HOME SELF-CARE Condition: Good Instructions (If sedation given, give patient instructions): Coronavirus D isease 2019 (COVID-19) Is patient prescribed a controlled substance at d/c from ED?: No Referrals: Norma Petersen MD [Primary Care Provider] - 1-2 days
[2020-06-18] MEDS ORDERED: BAMLANIVIMAB (EUA) 700 MG, ETESEVIMAB (EUA) 1,400 MG in SODIUM CHLORIDE 0.9% 50 ML IVPB ONE (02:30)
[2020-06-18 05:29] VITALS: BP 96/54; PULSE 52; RESP 18; TEMP 97.7
== END 2020-06-18 04:20 | disposition home or self-care (01) ==
LOC: EC 22:39
DX: U07.1 COVID-19 (principal); F17.200 Nicotine dependence, unspecified, uncomplicated
CPT/HCPCS: 36415; 93005; 80053; 84484; 85025; 85610; 85730; 87636; 71046; 99285; Q0245

== ENCOUNTER 2020-07-07 00:46 | Inpatient (IN) | payer OTHER ==
[2020-07-07] MEDS ORDERED: SODIUM CHLORIDE 0.9% 500 ML 500 ML IV ONE ×2 (01:39→03:08)
[2020-07-07] MEDS ORDERED: SODIUM CHLORIDE 0.9% 1,000 ML IV ONE (01:39)
[2020-07-07] MEDS ORDERED: METOPROLOL TARTRATE 5 MG/5 ML VIAL IVP STA ×2 (01:44→02:19)
--- NOTE | 2020-07-07 01:46 | ED ---
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 Patient states around 9:30 PM when he woke up he developed a headache. He states is left-sided, he states is sharp throbbing. Patient endorses nausea. He denies any weakness sensation deficits paresthesias vision changes or loss speech changes diplopia vomiting dizziness or ataxia. pt states that shortly after the headache developed he was beginning to have palpitations he felt like his heart was racing. Patient states he then took 3 tablets of metoprolol he believes her 25 mg.Pt states when the palpitations and THOMAS persisted he felt it was best to come to the ER and called EMS. Pt denies chest pain, dyspnea, leg swelling, jaw pain, arm pain or additional complaints. (Juana Dumas) - Related Data Home Medications Medication Instructions Recorded Confirmed Metoprolol Tartrate [Lopressor] 25 mg PO BID 07/07/20 07/07/20 Multivitamins, Thera [Multivitamin 1 tab PO HS 07/07/20 07/07/20 (formulary)] Rivaroxaban [Xarelto] 20 mg PO HS 07/07/20 07/07/20 Previous Rx's Medication Instructions Recorded Amitriptyline HCl [Elavil] 25 mg PO HS tab 07/08/20 Allergies Allergy/AdvReac Type Severity Reaction Status Date / Time No Known Allergies Allergy Verified 07/07/20 09:31 Review of Systems ROS Other: All systems not noted in ROS Statement are negative. <Juana Dumas - Last Filed: 07/07/20 19:11> ROS Other: All systems not noted in ROS Statement are negative. <Roshan Baker - Last Filed: 07/09/20 08:21> ROS Statement: Those systems with pertinent positive or pertinent negative responses have been documented in the HPI. Past Medical History Past Medical History: No Reported History, Atrial Fibrillation Additional Past Medical History / Comment(s): "urine blockage that was fixed" Pt states "aneurysm on left side of my head" History of Any Multi-Drug Resistant Organisms: None Reported Past Surgical History: Back Surgery, Hernia Repair Past Anesthesia/Blood Transfusion Reactions: No Reported Reaction Past Psychological History: No Psychological Hx Reported Smoking Status: Former smoker Past Alcohol Use History: None Reported Past Drug Use History: None Reported - Past Family History Mother Family Medical History: Cancer Additional Family Medical History / Comment(s): breast cancer, cataracts, back surgeries, knee and hip replacements Father Family Medical History: Diabetes Mellitus Additional Family Medical History / Comment(s): eye surgery, malaria, agent orange exposure Brother(s) Family Medical History: No Reported History Sister(s) Family Medical History: No Reported History Son(s) Family Medical History: No Reported History <Juana Dumas L - Last Filed: 07/07/20 19:11> General Exam Limitations: no limitations <PiterJuana L - Last Filed: 07/07/20 19:11> - General Exam Comments Initial Comments: General: The patient is awake and alert, in no distress Eye: +3 mm pupils are equal, round and reactive to light, extra-ocular movements are intact. No nystagmus. There is normal conjunctiva bilaterally. No signs of icterus. Ears, nose, mouth and throat: There are moist mucous membranes and no oral lesions. Neck: The neck is supple, there is no tenderness or JVD. No nuchal rigidity Cardiovascular: There is an increased rate and irregular rhythm. No murmur, rub or gallop is appreciated. Respiratory: Lungs are clear to auscultation, respirations are non-labored, breath sounds are equal. No wheezes, stridor, rales, or rhonchi. Gastrointestinal: Soft, non-distended, non-tender abdomen without masses or organomegaly noted. There is no rebound or guarding present. Musculoskeletal: Normal ROM, no tenderness. Strength 5/5. Sensation intact. Radial and DP pulses equal bilaterally 2+. Neurological: A&O x 3. CN II-XII intact, There are no obvious motor or sensory deficits. Coordination appears grossly intact. Speech is normal. No pronator drift. No ataxia. Skin: Skin is warm and dry and no rashes or lesions are noted. Psychiatric: Cooperative, appropriate mood & affect, normal judgment. (Juana Dumas) Course <Juana Dumas - Last Filed: 07/07/20 19:11> Vital Signs 07/07/20 07/07/20 07/07/20 00:47 00:54 01:12 Temperature 98 F Pulse Rate 45 L 125 H 131 H Respiratory 20 18 Rate Blood Pressure 104/93 112/62 O2 Sat by Pulse 98 98 Oximetry 07/07/20 07/07/20 07/07/20 01:49 01:51 02:02 Temperature Pulse Rate 102 H Respiratory 18 Rate Blood Pressure 114/85 87/73 101/65 O2 Sat by Pulse 98 Oximetry 07/07/20 07/07/20 07/07/20 03:01 03:10 04:18 Temperature Pulse Rate 134 H 116 H Respiratory 16 18 Rate Blood Pressure 101/75 87/60 102/73 O2 Sat by Pulse 98 98 Oximetry 07/07/20 07/07/20 04:52 05:05 Temperature 98.2 F Pulse Rate 52 L 51 L Respiratory 16 Rate Blood Pressure 91/68 O2 Sat by Pulse 99 98 Oximetry - Reevaluation(s) Reevaluation #1: consulted Dr Baker in regards to management of patient--discussed patient taking 3 metoprolol prior to arrival, and patient current BP of 88/66. He recommended fluid bolus and attempt rate control with 1 IV dose of lopressor 5mg. Pt currently in CT 07/07/20 01:44 (Juana Dumas) Reevaluation #2: signed out to Dr baker pending CTA, CXR-- still trying to obtain rate control 07/07/20 03:18 (Juana Dumas) Medical Decision Making - Lab Data Result diagrams: 07/07/20 01:33 07/07/20 01:33 <Juana Dumas - Last Filed: 07/07/20 19:11> - Lab Data Result diagrams: 07/08/20 04:54 07/08/20 04:54 <Roshan Baker - Last Filed: 07/09/20 08:21> - Medical Decision Making pt found to be in atrial fibrillation with RVR. pt BP lower aspect of normal but not hypotensive. MAP consistently >65mmHg. Pt CT brain (-) for SAH-performed within 6 hours of symptom onset. CTA revealed-- (Juana Dumas) I saw this patient in conjunction with the physician staff assistant. I performed independent history and physical exam. Agree with case management. (Roshan Baker) - Lab Data Lab Results 07/07/20 07/07/20 07/07/20 Range/Units 01:33 01:33 01:33 WBC 8.9 (3.8-10.6) k/uL RBC 4.43 (4.30-5.90) m/uL Hgb 14.0 (13.0-17.5) gm/dL Hct 40.6 (39.0-53.0) % MCV 91.6 (80.0-100.0) fL MCH 31.5 (25.0-35.0) pg MCHC 34.4 (31.0-37.0) g/dL RDW 13.9 (11.5-15.5) % Plt Count 222 (150-450) k/uL MPV 8.4 Neutrophils % 49 % Lymphocytes % 39 % Monocytes % 7 % Eosinophils % 3 % Basophils % 1 % Neutrophils # 4.3 (1.3-7.7) k/uL Lymphocytes # 3.5 (1.0-4.8) k/uL Monocytes # 0.6 (0-1.0) k/uL Eosinophils # 0.2 (0-0.7) k/uL Basophils # 0.1 (0-0.2) k/uL PT 12.1 H (9.0-12.0) sec INR 1.2 H (<1.2) APTT 32.7 H (22.0-30.0) sec Sodium 140 (137-145) mmol/L Potassium 3.9 (3.5-5.1) mmol/L Chloride 111 H (98-107) mmol/L Carbon Dioxide 21 L (22-30) mmol/L Anion Gap 8 mmol/L BUN 22 H (9-20) mg/dL Creatinine 0.92 (0.66-1.25) mg/dL Est GFR (CKD-EPI)AfAm >90 (>60 ml/min/1.73 sqM) Est GFR (CKD-EPI)NonAf 86 (>60 ml/min/1.73 sqM) Glucose 114 H (74-99) mg/dL Calcium 9.9 (8.4-10.2) mg/dL Magnesium 1.8 (1.6-2.3) mg/dL Total Bilirubin 0.3 (0.2-1.3) mg/dL AST 23 (17-59) U/L ALT 14 (4-49) U/L Alkaline Phosphatase 91 (38-126) U/L Troponin I (0.000-0.034) ng/mL Total Protein 6.6 (6.3-8.2) g/dL Albumin 3.7 (3.5-5.0) g/dL Coronavirus (PCR) (Not Detectd) 07/07/20 07/07/20 Range/Units 01:33 03:38 WBC (3.8-10.6) k/uL RBC (4.30-5.90) m/uL Hgb (13.0-17.5) gm/dL Hct (39.0-53.0) % MCV (80.0-100.0) fL MCH (25.0-35.0) pg MCHC (31.0-37.0) g/dL RDW (11.5-15.5) % Plt Count (150-450) k/uL MPV Neutrophils % % Lymphocytes % % Monocytes % % Eosinophils % % Basophils % % Neutrophils # (1.3-7.7) k/uL Lymphocytes # (1.0-4.8) k/uL Monocytes # (0-1.0) k/uL Eosinophils # (0-0.7) k/uL Basophils # (0-0.2) k/uL PT (9.0-12.0) sec INR (<1.2) APTT (22.0-30.0) sec Sodium (137-145) mmol/L Potassium (3.5-5.1) mmol/L Chloride (98-107) mmol/L Carbon Dioxide (22-30) mmol/L Anion Gap mmol/L BUN (9-20) mg/dL Creatinine (0.66-1.25) mg/dL Est GFR (CKD-EPI)AfAm (>60 ml/min/1.73 sqM) Est GFR (CKD-EPI)NonAf (>60 ml/min/1.73 sqM) Glucose (74-99) mg/dL Calcium (8.4-10.2) mg/dL Magnesium (1.6-2.3) mg/dL Total Bilirubin (0.2-1.3) mg/dL AST (17-59) U/L ALT (4-49) U/L Alkaline Phosphatase (38-126) U/L Troponin I <0.012 (0.000-0.034) ng/mL Total Protein (6.3-8.2) g/dL Albumin (3.5-5.0) g/dL Coronavirus (PCR) Not Detected (Not Detectd) Disposition Is patient prescribed a controlled substance at d/c from ED?: No Time of Disposition: 03:18 Decision to Admit Reason: Admit from EC Decision Date: 07/07/20 Decision Time: 03:18 <Juana Dumas - Last Filed: 07/07/20 19:11> <Roshan Baker - Last Filed: 07/09/20 08:21> Clinical Impression: Atrial fibrillation with RVR, Headache Disposition: ADMITTED IP TO THIS HOSP Condition: Stable
[2020-07-07 01:51] LABS: Basophils # (A) 0.1 k/uL (0-0.2); Basophils % (A) 1 %; Eosinophils # (A) 0.2 k/uL (0-0.7); Eosinophils % (A) 3 %; HCT 40.6 % (39.0-53.0); Lymphocytes # (A) 3.5 k/uL (1.0-4.8); Lymphocytes % (A) 39 %; MCH 31.5 pg (25.0-35.0); MCHC 34.4 g/dL (31.0-37.0); MCV 91.6 fL (80.0-100.0); Mean Platelet Volume 8.4; Monocytes # (A) 0.6 k/uL (0-1.0); Monocytes % (A) 7 %; Neutrophils # (A) 4.3 k/uL (1.3-7.7); Neutrophils % (A) 49 %; Platelet Count 222 k/uL (150-450); RBC 4.43 m/uL (4.30-5.90); RDW 13.9 % (11.5-15.5); WBC 8.9 k/uL (3.8-10.6)
--- NOTE | 2020-07-07 02:01 | CT ---
EXAM: CT Head Without Intravenous Contrast CLINICAL HISTORY: ITS.REASON CT Reason: Headache TECHNIQUE: Axial computed tomography images of the head/brain without intravenous contrast. CTDI is 49.2 mGy and DLP is 1086.4 mGy-cm. This CT exam was performed using one or more of the following dose reduction techniques: automated exposure control, adjustment of the mA and/or kV according to patient size, and/or use of iterative reconstruction technique. COMPARISON: 08/12/2017 FINDINGS: Brain: No hemorrhage or mass effect. Ventricles: No hydrocephalus. Bones/joints: Unremarkable. Soft tissues: Unremarkable. Sinuses: Minimal ethmoid sinus mucosal thickening. Mastoid air cells: Clear. IMPRESSION: No acute hemorrhage, hydrocephalus, or mass effect.
[2020-07-07 02:05] LABS: INR 1.2 (<1.2); Partial Thromboplastin Time 32.7 sec (22.0-30.0); Prothrombin Time 12.1 sec (9.0-12.0)
[2020-07-07 02:06] LABS: ALT 14 U/L (4-49); AST 23 U/L (17-59); African American GFR (CKD) >90 (>60 ml/min/1.73 sqM); Albumin 3.7 g/dL (3.5-5.0); Alkaline Phosphatase 91 U/L (38-126); Anion Gap 8 mmol/L; Blood Urea Nitrogen 22 mg/dL (9-20); Calcium 9.9 mg/dL (8.4-10.2); Carbon Dioxide 21 mmol/L (22-30); Chloride 111 mmol/L (98-107); Glucose 114 mg/dL (74-99); Magnesium 1.8 mg/dL (1.6-2.3); Non-African American GFR(CKD) 86 (>60 ml/min/1.73 sqM); Potassium 3.9 mmol/L (3.5-5.1); Sodium 140 mmol/L (137-145); Total Bilirubin 0.3 mg/dL (0.2-1.3); Total Protein 6.6 g/dL (6.3-8.2)
[2020-07-07] MEDS: HYDROmorphone 0.5 MG/0.5 ML SYRINGE IVP STA ×2 (03:05→04:08)
[2020-07-07] MEDS ORDERED: NALOXONE 0.4 MG/ML 1 ML VIAL IV PRN (03:17)
[2020-07-07] MEDS: SODIUM CHLORIDE 0.9% 1,000 ML IV SCH ×3 (03:20→16:10)
--- NOTE | 2020-07-07 03:27 | XR ---
EXAM: XR Chest, 2 Views CLINICAL HISTORY: ITS.REASON XR Reason: Chest Pain TECHNIQUE: Frontal and lateral views of the chest. COMPARISON: No relevant prior studies available. FINDINGS: Lungs: Hyperinflated lungs, suggestive of COPD. Pleural space: Unremarkable. Heart: Unremarkable. Mediastinum: Unremarkable. Bones/joints: Unremarkable. IMPRESSION: Hyperinflated lungs, suggestive of COPD.
--- NOTE | 2020-07-07 03:50 | CT ---
EXAM: CT Angiography Head With Intravenous Contrast CLINICAL HISTORY: ITS.REASON CT Reason: hx aneursym? TECHNIQUE: Axial computed tomographic angiography images of the head with intravenous contrast. CTDI is 0.085, 0.085, 49.1 mGy and DLP is 1086.4 mGy-cm. This CT exam was performed using one or more of the following dose reduction techniques: automated exposure control, adjustment of the mA and/or kV according to patient size, and/or use of iterative reconstruction technique. MIP reconstructed images were created and reviewed. COMPARISON: No relevant prior studies available. FINDINGS: HEAD: Right anterior cerebral artery: Unremarkable. No occlusion or significant stenosis. No aneurysm. Right middle cerebral artery: Unremarkable. No occlusion or significant stenosis. No aneurysm. Right posterior cerebral artery: Unremarkable. No occlusion or significant stenosis. No aneurysm. Left anterior cerebral artery: Unremarkable. No occlusion or significant stenosis. No aneurysm. Left middle cerebral artery: Unremarkable. No occlusion or significant stenosis. No aneurysm. Left posterior cerebral artery: Unremarkable. No occlusion or significant stenosis. No aneurysm. Basilar artery: Unremarkable. No occlusion or significant stenosis. No aneurysm. Right internal carotid artery: Unremarkable. No significant stenosis. No dissection or occlusion. Right vertebral artery: Unremarkable. No significant stenosis. No dissection or occlusion. Left internal carotid artery: Unremarkable. No significant stenosis. No dissection or occlusion. Left vertebral artery: Unremarkable. No significant stenosis. No dissection or occlusion. HEAD and NECK: Bones/joints: No acute fracture. No dislocation. Soft tissues: Unremarkable as visualized. No mass. CAROTID STENOSIS REFERENCE USING NASCET CRITERIA: % ICA stenosis = (1 - narrowest ICA diameter/diameter of distal cervical ICA) x 100. Mild - <50% stenosis. Moderate - 50-69% stenosis. Severe - 70-94% stenosis. Near occlusion - 95-99% stenosis. Occluded - 100% stenosis. IMPRESSION: No acute findings in the arteries of the head.
[2020-07-07] MEDS: METOPROLOL TARTRATE 5 MG/5 ML VIAL IVP SCH ×11 (04:13→07:15)
--- NOTE | 2020-07-07 09:10 | P.CRDCN ---
History of Present Illness History of present illness: HISTORY OF PRESENTING ILLNESS This is a pleasant 69-year-old with past medical history significant for paroxysmal atrial fibrillation, headaches, questionable stroke/"clot in brain", recent COVID-19 infection 3 weeks ago. He follows in the office with Dr Almeida. Patient has a history of headaches in the past and states he was diagnosed with an aneurysm and then possible clot in his brain which was also felt possibly related to a air bubble. He was transferred down to [place] and apparently had no intervention. He had a CAT scan performed today however which showed no aneurysm. He states that the time he was only having headaches. He has a history of headaches usually occurring once a month however had COVID-19 infection 3 weeks ago and since that time has had headaches on a daily basis. He presents secondary to waking up with a headache from bed and then noticed his heart was racing. He has a history of atrial fibrillation and will have A. fib episodes which usually lasts for 20-30 minutes and are sometimes associated with chest pressure. He had workup in office recently with a stress test approximately one month ago and has been monitored since that time. He denies any changes in symptoms with occasional A. fib episodes with chest pressure. He does have some dyspnea on exertion however has been fairly stable. He was found to be in atrial fibrillation on presentation and quickly converted back to normal sinus rhythm. Currently he states he feels well without any chest pain, pressure, shortness breath and headache has improved. Troponin negative 1, repeat this morning pending. REVIEW OF SYSTEMS At the time of my exam: CONSTITUTIONAL: Denies fever or chills. CARDIOVASCULAR: +chest pain, +shortness of breath, no orthopnea, PND or palpitations. RESPIRATORY: Denies cough. GASTROINTESTINAL: Denies abdominal pain, diarrhea, constipation, nausea or vomiting. MUSCULOSKELETAL: Denies myalgias. NEUROLOGIC: Denies numbness, tingling or weakness. + Headache. ENDOCRINE: Denies fatigue, weight change, polydipsia or polyurina. GENITOURINARY: Denies burning, hematuria or urgency with micturation. HEMATOLOGIC: Denies history of anemia or bleeding. PHYSICAL EXAMINATION Vital signs reviewed. CONSTITUTIONAL: No apparent distress. HEENT: Head is normocephalic. Pupils are equal, round. Sclerae anicteric. Mucous membranes of the mouth are moist. No JVD. No carotid bruit. CHEST EXAMINATION: Lungs are clear to auscultation. No chest wall tenderness is noted on palpation or with deep breathing. HEART EXAMINATION: Regular rate and rhythm. S1, S2 heard. No murmurs, gallops or rub. ABDOMEN: Soft, nontender. Positive bowel sounds. EXTREMITIES: 2+ peripheral pulses, no lower extremity edema and no calf tenderness. NEUROLOGIC EXAMINATION: Patient is awake, alert and oriented x3. ASSESSMENT 1. Paroxysmal atrial fibrillation, presented with A. fib with mild RVR, currently normal sinus rhythm 2. Chest pain, pressure sensation with his atrial fibrillation, history of the same with recent stress test in office, being treated medically 3. Headaches, history of cluster headaches and worsened with COVID-19 infection. 4. History of brain aneurysm however CTA shows no aneurysm PLAN Patient with episode of headaches which he has been having and appears worsened after his COVID-19 infection. He also had an episode of A. fib with RVR, similar episodes in the past with some associated chest pressure which she has also been having in the past. He had recent stress test approximately one month ago and is being treated, monitored medically. No significant change in symptoms, no evidence of acute coronary syndrome. Continue with home Xarelto, home metoprolol. No further changes in medications, appears back at his baseline. Follow-up with Dr. Lenz in 1 week. Past Medical History Past Medical History: No Reported History, Atrial Fibrillation Additional Past Medical History / Comment(s): "urine blockage that was fixed" Pt states "aneurysm on left side of my head" History of Any Multi-Drug Resistant Organisms: None Reported Past Surgical History: Back Surgery, Hernia Repair Past Anesthesia/Blood Transfusion Reactions: No Reported Reaction Past Psychological History: No Psychological Hx Reported Smoking Status: Former smoker Past Alcohol Use History: None Reported Past Drug Use History: None Reported - Past Family History Mother Family Medical History: Cancer Additional Family Medical History / Comment(s): breast cancer, cataracts, back surgeries, knee and hip replacements Father Family Medical History: Diabetes Mellitus Additional Family Medical History / Comment(s): eye surgery, malaria, agent orange exposure Brother(s) Family Medical History: No Reported History Sister(s) Family Medical History: No Reported History Son(s) Family Medical History: No Reported History Medications and Allergies Home Medications Medication Instructions Recorded Confirmed Type Ibuprofen [Motrin] 600 mg PO Q8HR PRN #20 tab 05/01/19 Rx Allergies Allergy/AdvReac Type Severity Reaction Status Date / Time No Known Allergies Allergy Verified 06/17/20 22:50 Physical Exam Vitals: Vital Signs Temp Pulse Pulse Resp BP BP Pulse Ox 07/07/20 07:00 98.0 F 47 L 16 102/62 99 07/07/20 05:31 97.7 F 50 L 16 100/64 99 07/07/20 05:05 98.2 F 51 L 16 91/68 98 07/07/20 04:52 52 L 99 07/07/20 04:18 116 H 18 102/73 98 07/07/20 03:10 87/60 07/07/20 03:01 134 H 16 101/75 98 07/07/20 02:02 102 H 18 101/65 98 07/07/20 01:51 87/73 07/07/20 01:49 114/85 07/07/20 01:12 131 H 18 112/62 98 07/07/20 00:54 125 H 07/07/20 00:47 98 F 45 L 20 104/93 98 Intake and Output 07/06/20 07/07/20 07/07/20 22:59 06:59 14:59 Other: # Voids 0 Weight 74.843 kg Results 07/07/20 01:33 07/07/20 01:33 Cardiac Enzymes 07/07/20 07/07/20 Range/Units 01:33 01:33 AST 23 (17-59) U/L Troponin I <0.012 (0.000-0.034) ng/mL Coagulation 07/07/20 Range/Units 01:33 PT 12.1 H (9.0-12.0) sec APTT 32.7 H (22.0-30.0) sec CBC 07/07/20 Range/Units 01:33 WBC 8.9 (3.8-10.6) k/uL RBC 4.43 (4.30-5.90) m/uL Hgb 14.0 (13.0-17.5) gm/dL Hct 40.6 (39.0-53.0) % Plt Count 222 (150-450) k/uL Comprehensive Metabolic Panel 05/16/21 Range/Units 01:33 Sodium 140 (137-145) mmol/L Potassium 3.9 (3.5-5.1) mmol/L Chloride 111 H (98-107) mmol/L Carbon Dioxide 21 L (22-30) mmol/L BUN 22 H (9-20) mg/dL Creatinine 0.92 (0.66-1.25) mg/dL Glucose 114 H (74-99) mg/dL Calcium 9.9 (8.4-10.2) mg/dL AST 23 (17-59) U/L ALT 14 (4-49) U/L Alkaline Phosphatase 91 (38-126) U/L Total Protein 6.6 (6.3-8.2) g/dL Albumin 3.7 (3.5-5.0) g/dL Current Medications Generic Name Dose Route Start Last Admin Trade Name Freq PRN Reason Stop Dose Admin Sodium Chloride 1,000 mls @ 130 mls/hr 07/07/20 03:15 07/07/20 03:20 Saline 0.9% IV 130 mls/hr .[id number] DENIA Administration Naloxone HCl 0.2 mg 07/07/20 03:17 Naloxone 0.4 Mg/Ml 1 Ml Vial IV Q2M PRN Opioid Reversal Intake and Output 07/06/20 07/07/20 07/07/20 22:59 06:59 14:59 Other: # Voids 0 Weight 74.843 kg 07/07/20 01:33 07/07/20 01:33
--- NOTE | 2020-07-07 10:22 | P.HPIM ---
History of Present Illness H&P Date: 07/07/20 Chief Complaint: Headache This is a 69-year-old male patient who presented to the ER with complaints of headache. Patient states around 9:30 yesterday he woke up with a pounding headache described as sharp and throbbing patient denies any other neurological symptoms. Patient reports he took 3 tablets of his Metroprolol. Patient does have a past medical history of aneurysm, A. fib in which she's on Xarelto been recently treated for Covid [address] was performed showing no acute hemorrhage, hydrocephalus or mass effect. Chest x-ray completed showing hyperinflated lungs suggestive of COPD. Head CTA also performed showing no acute findings and arteries of the head. EKG completed showing A. fib with RVR heart rate 126. At this time cardiology and neurology services will be consulted. Patient currently resting comfortably in bed reports improvement with headache. Patient denies any chest pain or shortness of breath. Patient denies nausea vomiting or diarrhea. Patient denies any urinary burning or frequency. Review of Systems Please refer to HPI otherwise unremarkable Past Medical History Past Medical History: No Reported History, Atrial Fibrillation Additional Past Medical History / Comment(s): "urine blockage that was fixed" Pt states "aneurysm on left side of my head" History of Any Multi-Drug Resistant Organisms: None Reported Past Surgical History: Back Surgery, Hernia Repair Past Anesthesia/Blood Transfusion Reactions: No Reported Reaction Past Psychological History: No Psychological Hx Reported Smoking Status: Former smoker Past Alcohol Use History: None Reported Past Drug Use History: None Reported - Past Family History Mother Family Medical History: Cancer Additional Family Medical History / Comment(s): breast cancer, cataracts, back surgeries, knee and hip replacements Father Family Medical History: Diabetes Mellitus Additional Family Medical History / Comment(s): eye surgery, malaria, agent orange exposure Brother(s) Family Medical History: No Reported History Sister(s) Family Medical History: No Reported History Son(s) Family Medical History: No Reported History Medications and Allergies Home Medications Medication Instructions Recorded Confirmed Type Metoprolol Tartrate [Lopressor] 25 mg PO BID 07/07/20 07/07/20 History Multivitamins, Thera [Multivitamin 1 tab PO HS 07/07/20 07/07/20 History (formulary)] Rivaroxaban [Xarelto] 20 mg PO HS 07/07/20 07/07/20 History Allergies Allergy/AdvReac Type Severity Reaction Status Date / Time No Known Allergies Allergy Verified 07/07/20 09:31 Physical Exam Vitals: Vital Signs Temp Pulse Pulse Resp BP BP Pulse Ox 07/07/20 07:00 98.0 F 47 L 16 102/62 99 07/07/20 05:31 97.7 F 50 L 16 100/64 99 07/07/20 05:05 98.2 F 51 L 16 91/68 98 07/07/20 04:52 52 L 99 07/07/20 04:18 116 H 18 102/73 98 07/07/20 03:10 87/60 07/07/20 03:01 134 H 16 101/75 98 07/07/20 02:02 102 H 18 101/65 98 07/07/20 01:51 87/73 07/07/20 01:49 114/85 07/07/20 01:12 131 H 18 112/62 98 07/07/20 00:54 125 H 07/07/20 00:47 98 F 45 L 20 104/93 98 Intake and Output 07/06/20 07/07/20 07/07/20 22:59 06:59 14:59 Other: # Voids 0 Weight 74.843 kg Head normocephalic Neck supple Lungs clear to auscultation bilaterally no wheezing or crackles Heart regular rate and rhythm S1-S2, no rub or gallop Abdomen is soft nontender nondistended positive bowel sounds no hepatos plenomegaly Extremities no edema Neuro alert and orientated to 3 Results CBC & Chem 7: 07/07/20 01:33 07/07/20 01:33 Labs: Abnormal Lab Results - Last 24 Hours (Table) 07/07/20 07/07/20 Range/Units 01:33 01:33 PT 12.1 H (9.0-12.0) sec INR 1.2 H (<1.2) APTT 32.7 H (22.0-30.0) sec Chloride 111 H (98-107) mmol/L Carbon Dioxide 21 L (22-30) mmol/L BUN 22 H (9-20) mg/dL Glucose 114 H (74-99) mg/dL Thrombosis Risk Factor Assmnt - Choose All That Apply Each Factor Represents 1 point: Abnormal pulmonary function (COPD) Each Risk Factor Represents 2 Points: Age 61-74 years Thrombosis Risk Factor Assessment Total Risk Factor Score: 3 Thrombosis Risk Factor Assessment Level: Moderate Risk Assessment and Plan Assessment: 1. Headache. Head CT and CTA of head reviewed. Neurology services will be consulted. 2. History of paroxysmal atrial fibrillation presented with A. fib with RVR. Currently patient is normal sinus rhythm. Patient is maintained on Xarelto and Metroprolol.Patient was evaluated by cardiology services continue current medication no changes to medication patient follow up with cardiology services 3. Chest pain. Patient was evaluated by cardiology services recent stress test reviewed from office. No further changes to medication per cardiology 4. History of brain aneurysm and 2018. CTA shows no aneurysm. Neurology services consulted. 5. Recent COVID-19 infection approximately 3 weeks ago DVT prophylaxis Xarelto. GI prophylaxis Pepcid Cardiology and neurology service is consulted Time with Patient: Greater than 30
--- NOTE | 2020-07-07 15:50 | P.CNNES ---
History of Present Illness Consult date: 07/07/20 Requesting physician: Geri Benson Reason for Consult: Headaches. History of aneurysm History of Present Illness: This is a 59-year-old gentleman with medical history of aneurysm of the left ICA (on imaging in 2018 in our MRA head imaging and confirmed at [facility]), ?small air bubble in subclavian vein reported in 2018 in our CTA (he was notified it was a clot and he received local anticoagulant at [facility]), atrial fibrillation on Xarelto who presented emergency department on 07/07/2020 for headache and palpitation. Patient stated that since having COVID-19 about 3 weeks ago he's been having a daily headache and it's over frontal region, lasting 3-4 hours, throbbing, would have some photophobia but denies any photophobia or nausea or vomiting and would wake him up from sleep and he would not have any visual disturbance or focal weakness or numbness associated with this. He said that that yesterday he started having headache over the left face he felt from the left scalp all the way to the jaw area and it felt was 10 over 10, throbbing, had some photophobia and nausea but denies any vomiting felt he had some tearing of the eyes as a result and was on the floor. Denies any visual disturbance. The headache he felt like happened about 940 which was 10 minutes after waking up at night and it lasted probably till midnight. Also had numbness and tingling from the shoulder all the way to the upper chest region. So she with this headache afterwards he felt like he was having mid chest pain and was short of breath and he felt like someone was sitting on his chest denies any rate radiation of the chest pain. He said prior to the COVID-19 pneumonia he was having similar type headache but once a week. She denies follow-up with a neurologist as an outpatient since the he was discharged from [facility] in 2018. He denies of having any serial brain imaging regaring his aneurysm. Patient's home medication includes Xarelto, Lopressor. Of note patient had CT angiography of the head and neck in our facility on 08/13/2017 and she reported as soft tissue area that is probably in the venous structure of the cavernous sinus epidural vein at the C1 level, the property master muscles at the skull base anteriorly. There is also a Small air bubble in the subclavian vein. Correlation with any intravenous therapy recently is recommended. MRA of brain on 07/2017 in facility and it was reported as: "Th ere is a 3mm focal outpouching projecting posteriorly from the clinoid segment left internal carotid artery, reference axial image 93". As a result the patient was transferred to [facility]. Per the patient he was notified that he did have aneurysm over the left ICA was told it was not large enough for any surgical intervention. ?small air bubble in subclavian vein reported in 2018 in our CTA (he was notified it was a clot and he received local anticoagulant at [facility]). Some of the patient workup consisted of: Initial vital signs: Blood pressure of 104/93, heart rate of 45, but then the next heart rate is 125, respiratory of 20, temperature of 98 Fahrenheit oral, pulse ox of 98% room air. CT of the head is reported as no acute hemorrhage, hydrocephalus or mass effect. CT angiography of the head is reported as no acute finding in the arteries of the head. EKG: Atrial fibrillation with RVR. Abnormal EKG. Initial white blood cell is 8.9 which is normal. The rest of the the basic CBC seems unremarkable. Initial serum glucose is 114 which is unremarkable. Rest of the basic chemistry panel is normal. Coagulation study PT of 12.1, INR 1.2 and PTT of 32.7. Ruby virus PCR was not detected. Review of Systems Review of system: The 12 point system was reviewed and apparent positive and negative per HPI. Past Medical History Past Medical History: No Reported History, Atrial Fibrillation Additional Past Medical History / Comment(s): "urine blockage that was fixed" Pt states "aneurysm on left side of my head" History of Any Multi-Drug Resistant Organisms: None Reported Past Surgical History: Back Surgery, Hernia Repair Past Anesthesia/Blood Transfusion Reactions: No Reported Reaction Past Psychological History: No Psychological Hx Reported Smoking Status: Former smoker Past Alcohol Use History: None Reported Past Drug Use History: None Reported - Past Family History Mother Family Medical History: Cancer Additional Family Medical History / Comment(s): breast cancer, cataracts, back surgeries, knee and hip replacements Father Family Medical History: Diabetes Mellitus Additional Family Medical History / Comment(s): eye surgery, malaria, agent orange exposure Brother(s) Family Medical History: No Reported History Sister(s) Family Medical History: No Reported History Son(s) Family Medical History: No Reported History Medications and Allergies Home Medications Medication Instructions Recorded Confirmed Type Metoprolol Tartrate [Lopressor] 25 mg PO BID 07/07/20 07/07/20 History Multivitamins, Thera [Multivitamin 1 tab PO HS 07/07/20 07/07/20 History (formulary)] Rivaroxaban [Xarelto] 20 mg PO HS 07/07/20 07/07/20 History Allergies Allergy/AdvReac Type Severity Reaction Status Date / Time No Known Allergies Allergy Verified 07/07/20 09:31 Physical Examination - Vital Signs Vital Signs: Vital Signs Temp Pulse Pulse Resp BP BP Pulse Ox 07/07/20 07:00 98.0 F 47 L 16 102/62 99 07/07/20 05:31 97.7 F 50 L 16 100/64 99 07/07/20 05:05 98.2 F 51 L 16 91/68 98 07/07/20 04:52 52 L 99 07/07/20 04:18 116 H 18 102/73 98 07/07/20 03:10 87/60 07/07/20 03:01 134 H 16 101/75 98 07/07/20 02:02 102 H 18 101/65 98 07/07/20 01:51 87/73 07/07/20 01:49 114/85 07/07/20 01:12 131 H 18 112/62 98 07/07/20 00:54 125 H 07/07/20 00:47 98 F 45 L 20 104/93 98 Intake and Output 07/06/20 07/07/20 07/07/20 22:59 06:59 14:59 Other: # Voids 0 4 Weight 74.843 kg GENERAL: The patient is lying in bed and is not in acute distress. CHEST: The heart rate is regular rate rhythm. No murmurs to auscultation. No carotid bruit bilaterally. LUNG: Clear to auscultation bilaterally no wheezing noted throughout. Not labored breathing. ABDOMEN/GI: Bowel sounds present in all 4 quadrants. No tenderness to palpation throughout. NEUROLOGICAL: Higher mental function: The patient is awake, alert, oriented to self, place and time. Patient is following commands. No aphasia and no neglect. Cranial nerves: The pupils are round, equal and reactive to light and accommodation. Visual rosales are full to confrontation throughout. Extraocular movement is intact no nystagmus is noted. Facial sensation is normal to touch throughout. The facial strength is normal throughout. Hearing is normal bilaterally to hand rub. Tongue is midline and moved [id number] without any difficulty. No dysarthria is noted. Shoulder shrug is normal bilaterally. Motor: Gait is normal with normal arm swings. The strength is 5 over 5 throughout. Normal tone and bulk. Cerebellum: Normal finger to nose heel to chin bilaterally. Sensation: Sensation is normal to touch throughout. Reflexes (right/left): 2+ throughout. Plantars are downgoing bilaterally. Results - Laboratory Findings CBC and BMP: 07/07/20 01:33 07/07/20 01:33 Abnormal Lab Findings: Abnormal Labs 07/07/20 07/07/20 01:33 01:33 PT 12.1 H INR 1.2 H APTT 32.7 H Chloride 111 H Carbon Dioxide 21 L BUN 22 H Glucose 114 H Assessment and Plan Assessment: * Cephalgia(since COVID 19 about 3 weeks ago having daily headaches, waking him from sleep). Seems more migranous features and having clusters of it (does not seem like cluster headache from description)---rule out mass or aneurysm or lesion cause of headache * 3mm Left ICA aneurysm (focal outpuching posteriorly from the clinoid segment of Left ICA on imaging in 2018 on MRA in our facility and was confirmed at [facility] as aneurysm but nosignificant enough for intervention). But on repeat CTA head it was reported as normal. * ?small air bubble in subclavian vein reported in 2018 in our CTA (he was not ified it was a clot and he received local anticoagulant at [facility]) * Proximal atrial fibrillation with RVR * History of COVID 19 pneumonia 3 weeks ago * Chest pain Plan: * Of note patient had MRI of brain on 07/2017 in facility and it was reported as: "There is a 3mm focal outpouching projecting posteriorly from the clinoid segment left internal carotid artery, reference axial image 93". I spoke with reading radiologist Dr. Velázquez and he reviewed it and and he felt it was artifact and felt there was no aneurysm. He also reviewed the current CTA of head on this current admission and felt it was normal. * CT of the head is reported as no acute hemorrhage, hydrocephalus or mass effect. * CT angiography of the head is reported as no acute finding in the arteries of the head. * I ordered MRI the brain and MRA of the head stat to rule out any mass, aneurysm. I ordered MRA of the neck to rule out any dissection. * Recommend possibly consideration of a CTA of the chest to rule out any dissection especially that he had a headache as well as chest pain with numbness of upper chest region but will defer that decision to the cardiology and the primary team. * I started the patient on Elavil 25 minute grams daily at bedtime. He refuses to be on Topamax because of the side effects which will affect with his occupation. * Patient needs to follow-up with his neurologist within 1-2 weeks. * We'll defer the rest of the medical management to the primary team. The plan is discussed with the patient's nurse. Thank for the consultation. Dr. Best will take over neurology service tomorrow AM (07/08/2020). Tian Talley M.D. Neuro-hospitalist Time with Patient: Greater than 30
[2020-07-07] MEDS: METOPROLOL TARTRATE 25 MG TAB PO SCH (20:56)
[2020-07-07] MEDS ORDERED: MULTIVITAMINS, THERA 1 EACH TAB PO SCH (21:00)
[2020-07-07] MEDS ORDERED: RIVAROXABAN 20 MG TAB PO SCH (21:00)
[2020-07-07] MEDS ORDERED: AMITRIPTYLINE HCL 25 MG TAB PO SCH (21:00)
[2020-07-08] MEDS: SODIUM CHLORIDE 0.9% 1,000 ML IV SCH ×2 (03:48→13:26)
[2020-07-08] MEDS: METOPROLOL TARTRATE 25 MG TAB PO SCH (08:11)
[2020-07-08 08:56] LABS: Basophils # (A) 0.04 X 10*3/uL (0.00-0.10); Basophils % (A) 0.5 %; Eosinophils # (A) 0.23 X 10*3/uL (0.04-0.35); HCT 38.1 % (39.6-50.0); HGB 12.4 g/dL (13.0-17.0); Lymphocytes # (A) 3.29 X 10*3/uL (0.90-5.00); Lymphocytes % (A) 43.5 %; MCH 30.4 pg (27.0-32.0); MCHC 32.5 g/dL (32.0-37.0); MCV 93.4 fL (80.0-97.0); Monocytes % (A) 9.2 %; Neutrophils # (A) 3.29 X 10*3/uL (1.80-7.70); Neutrophils % (A) 43.5 %; Platelet Count 194 X 10*3/uL (140-440); RBC 4.08 X 10*6/uL (4.40-5.60); RDW 14.7 % (11.5-14.5); WBC 7.57 X 10*3/uL (4.50-10.00)
[2020-07-08 09:58] LABS: African American GFR (CKD) 107.1 (60.0-200.0); Albumin 3.6 g/dL (3.80-4.90); Albumin/Globulin Ratio 1.5 (1.60-3.17); Anion Gap 4.1 mmol/L (4.00-12.00); BUN/Creat Ratio 17.5 Ratio (12.00-20.00); Calcium 8.9 mg/dL (8.7-10.3); Carbon Dioxide 25.9 mmol/L (21.6-31.8); Globulin 2.4 g/dL (1.6-3.3); Non-African American GFR(CKD) 92.4 (60.0-200.0); Potassium 4.2 mmol/L (3.5-5.5); Total Bilirubin 0.6 mg/dL (0.2-1.2)
--- NOTE | 2020-07-08 10:48 | MR ---
EXAMINATION TYPE: MR brain [facility] DATE OF EXAM: 07/08/2020 COMPARISON: CT brain 07/07/2020, MRA brain 07/08/2020 HISTORY: Headache with hx of left ICA aneurysm, Rule out mass/intracranial lesion TECHNIQUE: Multiplanar, multisequence images of the brain and brainstem is performed without and with IV contras t, utilizing 7 mL intravenous Gadavist . [id number] and postcontrast images obtained through the neck, 3-dimensional reconstructions were performed on an alternate workstation. FINDINGS: Diffusion weighted images demonstrate no evidence of a recent infarct or other diffusion ab normality. There is no extra-axial fluid collection. There are scattered hyperintensities on invers ion recovery T2-weighted sequences within the deep white matter, approximately 10 lesions are present , the largest is present within the left frontal white matter, axial image 17 measuring approximately 5 mm The ventricular system and cisternal spaces are normal in size and appearance. The brain volum e is age appropriate. Midline structures demonstrate normal morphology. The craniocervical junction appears within normal limits. Post contrast images demonstrate no abnormal enhancement. The dural venous sinuses appear pa tent. The visualized sinuses are clear and the globes are intact. Some inflammatory change present in the mastoid air cells on the right, ethmoid air cells and frontal sinus, mild mucoperiosteal thicken ing in the maxillary sinuses MRA of the neck: Left and right common carotid, internal and extra carotid arteries are patent. Verte bral arteries are patent. No evidence of stenosis by NASCET criteria. There is no evident dissection or aneurysm within the neck. Innominate artery, left and right subclavian arteries are patent. IMPRESSION: There is some sinus disease. Nonspecific white matter demyelination.
--- NOTE | 2020-07-08 10:56 | MR ---
EXAMINATION TYPE: MR angio head wo con DATE OF EXAM: 07/08/2020 COMPARISON: Prior CT angiogram thoracic and 2020, MRA 08/14/2017 HISTORY: Headache with hx of left ICA aneurysm TECHNIQUE: Time of flight images focusing on the [place] were performed without contrast. Th ree-dimensional reconstructions on an alternate workstation. FINDINGS: [place] shows a stable appearance. Probable atheromatous changes involving the int ernal carotid artery at the level of the ophthalmic artery origin just laterally shows a similar appe arance, focal outpouching is again noted. There is no evident dissection, stenosis, or embolus. The s ignal drop in the distal right vertebral artery likely represents flow related change. IMPRESSION: Stable findings. No acute abnormality.
--- NOTE | 2020-07-08 13:39 | P.PN ---
Subjective This is a pleasant 69-year-old with past medical history significant for paroxysmal atrial fibrillation, headaches, questionable stroke/"clot in brain", recent COVID-19 infection 3 weeks ago. He follows in the office with Dr Almeida. Patient has a history of headaches in the past and states he was diagnosed with an aneurysm and then possible clot in his brain which was also felt possibly related to a air bubble. He was transferred down to [place] and apparently had no intervention. He had a CAT scan performed today however which showed no aneurysm. He states that the time he was only having headaches. He has a history of headaches usually occurring once a month however had COVID-19 infection 3 weeks ago and since that time has had headaches on a daily basis. He presents secondary to waking up with a headache from bed and then noticed his heart was racing. He has a history of atrial fibrillation and will have A. fib episodes which usually lasts for 20-30 minutes and are sometimes associated with chest pressure. He had workup in office recently with a stress test approximately one month ago and has been monitored since that time. He denies any changes in symptoms with occasional A. fib episodes with chest pressure. He does have some dyspnea on exertion however has been fairly stable. He was found to be in atrial fibrillation on presentation and quickly converted back to normal sinus rhythm. Currently he states he feels well without any chest pain, pressure, shortness breath and headache has improved. Troponin negative 2. 07/08/2020: Patient seen and examined at bedside, in the bedside chair. No acute distress. Neurology is following the patient. MRI of the brain showed some sinus disease nonspecific white matter demyelination. No acute abnormality. MRA neck- carotids and vertebral arteries patent. No evidence of dissection or aneurysm seen. MR angiogram had revealed no acute abnormality. Blood pressure 130/70, heart rate 56, afebrile, maintaining oxygen saturations 94% on room air. Telemetry reviewed patient is currently still in sinus mechanism heart rate 50 to 60s. He's currently being maintained on multiple titrate 25 mg twice a day, Xarelto 20 mg nightly. PHYSICAL EXAMINATION Vital signs reviewed. CONSTITUTIONAL: No apparent distress. HEENT: Neck supple No JVD. No carotid bruit. CHEST EXAMINATION: Lungs are clear to auscultation. HEART EXAMINATION: Regular rate and rhythm. S1, S2 heard. No murmurs, gallops or rub. ABDOMEN: Soft, nontender. Positive bowel sounds. EXTREMITIES: 2+ peripheral pulses, no lower extremity edema and no calf tenderness. NEUROLOGIC EXAMINATION: Patient is awake, alert and oriented x3. ASSESSMENT 1. Paroxysmal atrial fibrillation, presented with A. fib with mild RVR, currently normal sinus rhythm 2. Chest pain, pressure sensation with his atrial fibrillation, history of the same with recent stress test in office, being treated medically 3. Headaches, history of cluster headaches and worsened with COVID-19 infection. 4. History of brain aneurysm however CTA shows no aneurysm PLAN Patient with episode of headaches which he has been having and appears worsened after his COVID-19 infection. He also had an episode of A. fib with RVR, similar episodes in the past with some associated chest pressure which she has also been having in the past. He had recent stress test approximately one month ago and is being treated, monitored medically. No significant change in symptoms, no evidence of acute coronary syndrome. Continue with home Xarelto, home metoprolol. No further changes in medications, appears back at his baseline. We will sign off at this time time. Follow-up with Dr. Lenz in 1 week. Objective - Vital Signs Vital signs: Vital Signs Temp 97.6 F 07/08/20 07:25 Pulse 56 L 07/08/20 07:25 Resp 19 07/08/20 08:00 BP 130/70 07/08/20 07:25 Pulse Ox 94 L 07/08/20 07:25 Intake & Output 07/07/20 07/08/20 07/08/20 18:59 06:59 18:59 Other: # Voids 4 2 - Labs CBC & Chem 7: 07/08/20 04:54 07/08/20 04:54 Labs: Abnormal Lab Results - Last 24 Hours (Table) 07/08/20 07/08/20 Range/Units 04:54 04:54 RBC 4.08 L (4.40-5.60) X 10*6/uL Hgb 12.4 L (13.0-17.0) g/dL Hct 38.1 L (39.6-50.0) % RDW 14.7 H (11.5-14.5) % Chloride 111 H (96-109) mmol/L Total Protein 6.0 L (6.2-8.2) g/dL Albumin 3.60 L (3.80-4.90) g/dL Albumin/Globulin Ratio 1.50 L (1.60-3.17) g/dL
[2020-07-08 14:34] VITALS: BP 147/71; PULSE 66; RESP 16; TEMP 97.9
--- NOTE | 2020-07-08 15:51 | CT ---
EXAMINATION TYPE: CT angio thor/abd pel aorta DATE OF EXAM: 07/08/2020 COMPARISON: None. HISTORY: chest pain CT DLP: 634 mGycm. Automated Exposure Control for Dose Reduction was Utilized. CONTRAST: CTA scan of the thorax, abdomen and pelvis is performed without oral and without and with IV Contrast , patient injected with 100 mL of Isovue 370. Aneurysm protocol with 3-D reconstructed images created on an independent workstation. FINDINGS: VASCULAR: Satisfactory enhancement central pulmonary arteries. Satisfactory enhancement of the aorta. Bovine type arch which is normal variant. No significant plaque or stenosis. Patent celiac artery, S MA, and FAUSTINO. Patent bilateral single renal arteries. Focal plaque at origin of celiac artery without greater than 50% stenosis. Mild calcified plaque distal abdominal aorta extends into iliac branch ves sels. No significant stenosis. No greater than 3.0 cm aneurysm. No linear hypodensity to suggest diss ection. Noncontrast images show no suspicious hyperdense material to suggest intramural hematoma in t he thoracic aorta. LUNGS: Mild to moderate linear atelectatic change of bilateral lower lobes slightly more thickened or consolidative in appearance near the diaphragms. No pleural effusion or pneumothorax seen bilaterall y. MEDIASTINUM: There are no greater than 1 cm mediastinal lymph nodes. Prominent but subcentimeter left hilar lymph node. No cardiomegaly or pericardial effusion is seen. Mild to moderate calcified plaq ue of the coronary arteries. LIVER/GB: A few scattered simple appearing thin-walled cysts. Contracted gallbladder. PANCREAS: No significant abnormality is seen. SPLEEN: No significant abnormality is seen. ADRENALS: No significant abnormality is seen. KIDNEYS: No significant abnormality is seen. BOWEL: No significant abnormality is seen. GENITAL ORGANS: Scattered bilateral pelvic phleboliths. LYMPH NODES: No greater than 1cm abdominal or pelvic lymph nodes are appreciated. OSSEOUS STRUCTURES: Moderate disc space narrowing and vacuum disc phenomenon L4-L5 and L5-S1 levels. Facet arthropathy lower lumbar spine. Slight scoliotic curvature. OTHER: No significant additional abnormality is seen. IMPRESSION: No thoracic aortic aneurysm or dissection. No acute findings are evident.
--- NOTE | 2020-07-09 10:09 | P.DS ---
Providers Date of admission: 07/07/20 04:54 Expected date of discharge: 07/08/20 Attending physician: Geri Benson Consults: 07/07/20 04:55 Consult Physician Routine Consulting Provider: Emilee Childress Consult Reason/Comments: atrial fibrillation with RVR Do you want consulting provider notified?: Yes 07/07/20 10:11 Consult Physician Routine Consulting Provider: Tian Talley Consult Reason/Comments: history of anuersym. headache Do you want consulting provider notified?: Yes Primary care physician: Norma Petersen [facility] Hospital Course: Diagnoses on discharge: 1. Headache. Head CT and CTA of head reviewed. Neurology services will be consulted. 2. History of paroxysmal atrial fibrillation presented with A. fib with RVR. Currently patient is normal sinus rhythm. Patient is maintained on Xarelto and Metroprolol.Patient was evaluated by cardiology services continue current medication no changes to medication patient follow up with cardiology services 3. Chest pain. Patient was evaluated by cardiology services recent stress test reviewed from office. No further changes to medication per cardiology 4. History of brain aneurysm and 2018. CTA shows no aneurysm. Neurology services consulted. 5. Recent COVID-19 infection approximately 3 weeks ago Hospital course: This is a 69-year-old male patient who presented to the ER with complaints of headache. Patient states around 9:30 yesterday he woke up with a pounding headache described as sharp and throbbing patient denies any other neurological symptoms. Patient reports he took 3 tablets of his Metroprolol. Patient does have a past medical history of aneurysm, A. fib in which she's on Xarelto been recently treated for Covid [address] was performed showing no acute hemorrhage, hydrocephalus or mass effect. Chest x-ray completed showing hyperinflated lungs suggestive of COPD. Head CTA also performed showing no acute findings and arteries of the head. EKG completed showing A. fib with RVR heart rate 126. At this time cardiology and neurology services will be consulted. Patient currently resting comfortably in bed reports improvement with headache. Patient denies any chest pain or shortness of breath. Patient denies nausea vomiting or diarrhea. Patient denies any urinary burning or frequency. On 1Patient was seen and examined on the medical floor, he is alert and oriented x 3 in no distress, he denies any complaints there is no fever or chills no headache or dizziness no chest pain no shortness of breath no palpitation no cough no nausea or vomiting no abdominal pain no diarrhea no blood in the stools no burning with urination no frequency or urgency and no hematuria, there is no weakness or numbness in any of the extremities no change in vision speech or gait. Neurology recommended CT angiogram of the chest to rule out any evidence of dissection, this was done today and was within normal limits. Patient is asymptomatic at this time he was discharged home he will follow-up with his primary care physician Dr. Petersen within one week. Patient Condition at Discharge: Stable Plan - Discharge Summary New Discharge Prescriptions: New Amitriptyline HCl [Elavil] 25 mg PO HS tab Continue Multivitamins, Thera [Multivitamin (formulary)] 1 tab PO HS Metoprolol Tartrate [Lopressor] 25 mg PO BID Rivaroxaban [Xarelto] 20 mg PO HS Discharge Medication List Metoprolol Tartrate [Lopressor] 25 mg PO BID 07/07/20 [History] Multivitamins, Thera [Multivitamin (formulary)] 1 tab PO HS 07/07/20 [History] Rivaroxaban [Xarelto] 20 mg PO HS 07/07/20 [History] Amitriptyline HCl [Elavil] 25 mg PO HS tab 07/08/20 [Rx] Follow up Appointment(s)/Referral(s): Norma Petersen MD [Primary Care Provider] - 1-2 days Emilee Childress MD [STAFF PHYSICIAN] - 07/15/20 3:00 pm Patient Instructions/Handouts: A-fib (Atrial Fibrillation) (GEN), Sinusitis (GEN), Mountain Sickness (ED) Discharge Disposition: HOME SELF-CARE
== END 2020-07-08 16:45 | disposition home or self-care (01) | DRG 103 ==
LOC: EC 00:46 → OBSVTOIN 04:54 → 6NMEDSUR 04:54
PROVIDERS: ADMIT Internal Medicine; ATTEND Internal Medicine
DX: R51.9 Headache, unspecified (principal); Z86.16 Personal history of COVID-19; I48.0 Paroxysmal atrial fibrillation; Z86.79 Personal history of other diseases of the circulatory system; J44.9 Chronic obstructive pulmonary disease, unspecified; H53.149 Visual discomfort, unspecified; Z20.822 Contact with and (suspected) exposure to COVID-19; R07.9 Chest pain, unspecified; Z87.891 Personal history of nicotine dependence; Z79.01 Long term (current) use of anticoagulants; Z79.899 Other long term (current) drug therapy; Z86.73 Personal history of transient ischemic attack (TIA), and cerebral infarction without residual deficits; Z87.01 Personal history of pneumonia (recurrent); Z83.3 Family history of diabetes mellitus; Z80.3 Family history of malignant neoplasm of breast; Z82.61 Family history of arthritis; Z84.89 Family history of other specified conditions
CPT/HCPCS: 36415; 70450; 70496; 70544; 70549; 70553; 71046; 71275; 74174; 80053; 83735; 83880; 84484; 85025; 85610; 85730; 87635; 93005; 96374; 96376; 99285

== ENCOUNTER 2020-08-06 11:20 | Emergency (ER) | payer OTHER ==
[2020-08-06 11:46] VITALS: BP 126/77; PULSE 62; RESP 18; TEMP 98
--- NOTE | 2020-08-06 12:54 | XR ---
EXAMINATION TYPE: XR knee complete LT DATE OF EXAM: 08/06/2020 COMPARISON: NONE HISTORY: Pain TECHNIQUE: Three views are submitted. FINDINGS: Joint spaces are preserved. Osseous structures are intact. No acute fracture seen. Small amount of fluid in the suprapatellar bursa. Mild narrowing of the patellofemoral joint and medial compartment of the knee joint. IMPRESSION: 1. No acute fracture or dislocation. 2. Mild arthropathy. Small amount of fluid in the suprapatellar bursa incidentally noted.
--- NOTE | 2020-08-06 12:59 | ED ---
Lower Extremity Injury HPI - General Chief Complaint: Extremity Injury, Lower Stated Complaint: Knee injury Time Seen by Provider: 08/06/20 11:54 Source: patient, RN notes reviewed Mode of arrival: wheelchair Limitations: no limitations - History of Present Illness Initial Comments: 69-year-old male presents emergency Department chief complaint of left knee pain. Patient states he started with some cramping in his upper leg does not settle into his left knee he states it hurts when he fully straightens his leg or puts weight on it. Patient states he feels very tight. Patient has any redness no fevers or chills he does have a history of clots in which he is on blood thinners for. Patient denies any leg swelling redness denies any back pain no bowel bladder incontinence or retention no paresthesias. - Related Data Home Medications Medication Instructions Recorded Confirmed Metoprolol Tartrate [Lopressor] 25 mg PO BID 07/07/20 07/07/20 Multivitamins, Thera [Multivitamin 1 tab PO HS 07/07/20 07/07/20 (formulary)] Rivaroxaban [Xarelto] 20 mg PO HS 07/07/20 07/07/20 Previous Rx's Medication Instructions Recorded Amitriptyline HCl [Elavil] 25 mg PO HS tab 07/08/20 predniSONE 50 mg PO DAILY #5 tab 08/06/20 Allergies Allergy/AdvReac Type Severity Reaction Status Date / Time No Known Allergies Allergy Verified 08/06/20 11:46 Review of Systems ROS Statement: Those systems with pertinent positive or pertinent negative responses have been documented in the HPI. ROS Other: All systems not noted in ROS Statement are negative. Past Medical History Past Medical History: Atrial Fibrillation Additional Past Medical History / Comment(s): "urine blockage that was fixed" Pt states "aneurysm on left side of my head" History of Any Multi-Drug Resistant Organisms: None Reported Past Surgical History: Back Surgery, Hernia Repair Past Anesthesia/Blood Transfusion Reactions: No Reported Reaction Past Psychological History: No Psychological Hx Reported Smoking Status: Former smoker Past Alcohol Use History: None Reported Past Drug Use History: None Reported - Past Family History Mother Family Medical History: Cancer Additional Family Medical History / Comment(s): breast cancer, cataracts, back surgeries, knee and hip replacements Father Family Medical History: Diabetes Mellitus Additional Family Medical History / Comment(s): eye surgery, malaria, agent orange exposure Brother(s) Family Medical History: No Reported History Sister(s) Family Medical History: No Reported History Son(s) Family Medical History: No Reported History General Exam Limitations: no limitations General appearance: alert, in no apparent distress Head exam: Present: atraumatic, normocephalic, normal inspection Respiratory exam: Present: normal lung sounds bilaterally. Absent: respiratory distress, wheezes, rales, rhonchi, stridor Cardiovascular Exam: Present: regular rate, normal rhythm, normal heart sounds. Absent: systolic murmur, diastolic murmur, rubs, gallop, clicks Extremities exam: Present: other (Left knee there is tenderness over the patella, mild swelling no erythema no increased warmth neurovascular intact left leg, pain with range of motion no laxity no tenderness of lower below the left knee) Neurological exam: Present: reflexes normal. Absent: motor sensory deficit Course Vital Signs 08/06/20 11:43 Temperature 98.0 F Pulse Rate 62 Respiratory 18 Rate Blood Pressure 126/77 O2 Sat by Pulse 98 Oximetry Medical Decision Making - Medical Decision Making 69-year-old present for left knee pain. There is some fluid noted in the suprapatellar region and underlying bursitis. Patient has a negative ultrasound. Patient's neurovascular intact patient we given steroids as he is currently on Xarelto and unable to take ibuprofen. Patient will follow-up with orthopedics return parameters were discussed. Disposition Clinical Impression: Bursitis of left knee Disposition: HOME SELF-CARE Condition: Stable Instructions (If sedation given, give patient instructions): Knee Pain (ED), Swollen Knee Joint (ED) Additional Instructions: Please return to the Emergency Department if symptoms worsen or any other concerns. Prescriptions: predniSONE 50 mg PO DAILY #5 tab Is patient prescribed a controlled substance at d/c from ED?: No Referrals: Norma Petersen MD [Primary Care Provider] - 1-2 days Eduar Cabrera MD [STAFF PHYSICIAN] - 1-2 days Time of Disposition: 13:53
--- NOTE | 2020-08-06 13:41 | US ---
EXAMINATION TYPE: US venous doppler duplex LE LT DATE OF EXAM: 08/06/2020 1:30 PM COMPARISON: NONE CLINICAL HISTORY: pain. Left knee pain SIDE PERFORMED: Left TECHNIQUE: The lower extremity deep venous system is examined utilizing real time linear array sonog odalys with graded compression, doppler sonography and color-flow sonography. VESSELS IMAGED: Common Femoral Vein Deep Femoral Vein Greater Saphenous Vein * Femoral Vein Popliteal Vein Small Saphenous Vein * Proximal Calf Veins (* superficial vessels) Left Leg: Negative for DVT IMPRESSION: Grayscale, color doppler, spectral doppler imaging performed of the deep veins of the lo wer extremities. There is normal flow, compressibility, vascular waveforms.
[2020-08-06] MEDS ORDERED: ACET/COD 300 MG/30 MG STARTER PACK 6 TAB BTL PO STA (13:57)
== END 2020-08-06 14:05 | disposition home or self-care (01) ==
LOC: EC 11:20
DX: M70.52 Other bursitis of knee, left knee (principal); I48.91 Unspecified atrial fibrillation; Z87.891 Personal history of nicotine dependence; Z79.01 Long term (current) use of anticoagulants
CPT/HCPCS: 99284

== ENCOUNTER 2023-01-29 06:10 | Day surgery (SDC) | payer MEDICARE ==
[2023-01-29] MEDS ORDERED: SODIUM CHLORIDE 0.9% 1,000 ML IV SCH (06:45)
[2023-01-29] MEDS ORDERED: SODIUM CHLORIDE 0.9% 500 ML 500 ML IV ONE ×2 (07:01→07:53)
[2023-01-29] MEDS ORDERED: PROPOFOL 10 MG/ML 20 ML VIAL IV ONE (07:30)
[2023-01-29 07:34] LABS: African American GFR (CKD) >90 (>60 ml/min/1.73 sqM); Anion Gap 10 mmol/L; Blood Urea Nitrogen 25 mg/dL (9-20); Calcium 9.5 mg/dL (8.4-10.2); Carbon Dioxide 23 mmol/L (22-30); Chloride 108 mmol/L (98-107); Glucose 101 mg/dL (74-99); Non-African American GFR(CKD) 80 (>60 ml/min/1.73 sqM); Potassium 4.3 mmol/L (3.5-5.1); Sodium 141 mmol/L (137-145)
[2023-01-29 07:39] VITALS: RESP 16; TEMP 98
--- NOTE | 2023-01-29 07:50 | P.PCN ---
Date of Procedure: 01/29/23 Operative Findings: Cardioversion Report Performing physician Saurav Coronel M.D. Procedure performed Attempted cardioversion of atrial fibrillation to normal sinus mechanism using 200 J and 3 attempt Indication Symptomatic atrial fibrillation Complication None Level of sedation The procedure was performed under deep sedation using propofol with COMMUNITY RELATIONS MANAGER in the room Procedure description After obtaining an informed consent the patient was brought to the recovery room. Sedation was introduced using propofol with COMMUNITY RELATIONS MANAGER in the room. Subsequently we attempted cardioversion 3 times but the patient went into sinus rhythm for only a few seconds and came back into atrial fibrillation Postprocedure management Continue the current medical regimen Continue oral anticoagulation Follow-up with the patient
[2023-01-29 09:22] VITALS: BP 128/67; PULSE 111
== END 2023-01-29 09:30 | disposition home or self-care (01) ==
LOC: OR 06:10
PROVIDERS: ATTEND Internal Medicine Interventional Cardiology
DX: I48.0 Paroxysmal atrial fibrillation (principal); I51.9 Heart disease, unspecified; I10 Essential (primary) hypertension; E78.5 Hyperlipidemia, unspecified; Z79.01 Long term (current) use of anticoagulants; Z79.899 Other long term (current) drug therapy
CPT/HCPCS: 92960; 80048; J2704

== ENCOUNTER → 2023-03-03 | Outpatient (CLI) | payer MEDICARE ==
[2023-03-03 15:16] LABS: BUN/Creat Ratio 10.42 Ratio (12.00-20.00); Blood Urea Nitrogen 12.5 mg/dL (9.0-27.0); Calcium 9.6 mg/dL (8.7-10.3); Carbon Dioxide 24.2 mmol/L (21.6-31.8); Chloride 107 mmol/L (96-109); Glucose 91 mg/dL (70-110); Potassium 4.5 mmol/L (3.5-5.5); Sodium 141 mmol/L (135-145)
== END | disposition home or self-care (01) ==
LOC: LABPAT 11:20
PROVIDERS: ATTEND Anesthesiology
DX: Z01.812 Encounter for preprocedural laboratory examination (principal); I48.91 Unspecified atrial fibrillation; Z79.899 Other long term (current) drug therapy
CPT/HCPCS: 36415; 80048

== ENCOUNTER → 2023-03-05 | Day surgery (SDC) | payer MEDICARE ==
[~2023-03-05] MED LIST: LACTATED RINGERS 1,000 ML IV SCH
[2023-03-05 06:59] VITALS: BP 143/78; PULSE 46; RESP 16; TEMP 97.6
== END ==
LOC: OR 06:25
PROVIDERS: ATTEND Internal Medicine Interventional Cardiology
DX: Z53.8 Procedure and treatment not carried out for other reasons (principal); I48.0 Paroxysmal atrial fibrillation; E78.5 Hyperlipidemia, unspecified; Z79.01 Long term (current) use of anticoagulants; Z79.899 Other long term (current) drug therapy

== ENCOUNTER → 2023-03-29 | Outpatient (CLI) | payer MEDICARE ==
--- NOTE | 2023-03-29 15:22 | XR ---
EXAMINATION TYPE: XR chest 2V DATE OF EXAM: 03/29/2023 COMPARISON: 07/07/2020 TECHNIQUE: PA and lateral views submitted. HISTORY: Shortness of breath FINDINGS: The lungs are clear and there is no pneumothorax, pleural effusion, or focal pneumonia. Heart size normal and no overt failure. Osseous structures demonstrate hypertrophic and degenerative changes of the spine. Subsegmental changes at the lung bases compatible with atelectasis or bronchiectasis. AC j oint arthropathy. Underlying COPD. Biapical pleural thickening. Atherosclerotic change aorta. IMPRESSION: 1. No acute process. 2. COPD.
[2023-03-30 02:51] LABS: T4, Free (Free Thyroxine) 1.5 ng/dL (0.80-1.80)
== END | disposition home or self-care (01) ==
LOC: LABWHC1 14:53
PROVIDERS: ATTEND Internal Medicine Interventional Cardiology
DX: I48.91 Unspecified atrial fibrillation (principal); J44.9 Chronic obstructive pulmonary disease, unspecified
CPT/HCPCS: 36415; 71046; 84439; 84443; 84450; 84460

== ENCOUNTER → 2023-11-16 | Outpatient (CLI) | payer MEDICARE ==
[2023-11-16 08:03] LABS: African American GFR (CKD) >90 (>60 ml/min/1.73 sqM); Blood Urea Nitrogen 23 mg/dL (9-20); Non-African American GFR(CKD) 87 (>60 ml/min/1.73 sqM)
--- NOTE | 2023-11-16 15:46 | MR ---
INDICATION: Patient age:Male; 73 years old; Reason for study: G500 Trigeminal neuralgia; vascular headache COMPARISON: MR brain MRA neck 07/08/2020, MRA head 07/08/2020. TECHNIQUE: Multi planar, multi sequence imaging was performed through the brain. The patient was then given 7 cc of Gadavist intravenously and multi planar, T1 fat-saturation images were obtained. FINDINGS: Motion degraded examination. The [place]-white junctions, ventricular system, basal cisterns appear unremarkable. Diffusion-weighted imaging shows no evidence of restricted diffusion to suggest acute/subacute infarct. Intracranial art erial flow voids are maintained. Midline structures show no abnormality. Stable scattered high T2/FLA IR signal intensity foci seen within the periventricular and subcortical white matter. Approximately 10 lesions present but largest in the left frontal subcortical white matter measuring 5 mm (series 60 1, image 20), previously 5 mm. The susceptibility weighted images do not reveal any evidence for micr o-hemorrhage. After administration of gadolinium, there is a 5 mm ovoid enhancing lesion within the left internal a uditory canal (series 1202, image 11). There is some T2 hypointensity identified. No extension to the porus acusticus. Age-appropriate cerebral parenchymal volume. Previously seen left internal carotid artery outpouching is not well-visualized on this exam due to lack of angiogram technique. There is a vessel that abuts the left trigeminal nerve just after its origin (series 1001, image 180). Addition al vessel abuts the origin of the right trigeminal nerve at its origin (series 1001, image 180). The bone marrow signal is within normal limits. Trace T2 right mastoid air cell opacification. Mild m ucosal thickening of the anterior bilateral ethmoid sinuses. Bilateral aphakia. IMPRESSION: 1. No evidence of acute/subacute infarct. 2. Left internal auditory canal enhancing 5 mm lesion. This is suspicious for schwannoma. 3. There are vessels abutting the bilateral trigeminal nerves near their origins. Correlate clinicall y. 4. Stable nonspecific white matter changes, likely related to small vessel ischemic disease. [facility], , 11/16/2023 3:44 PM
--- NOTE | 2023-11-22 16:37 | CT ---
EXAMINATION TYPE: CT angio head neck DATE OF EXAM: 11/16/2023 HISTORY: headache COMPARISON: None CT DLP: 1557.7 mGycm. Automated Exposure Control for Dose Reduction was Utilized. TECHNIQUE: CTA scan of the neck is performed with IV Contrast, patient injected with 65 mL of Isovue 370, axial images are obtained, coronal and sagittal reformatted images are reviewed. Three-D recons tructed images are created on an independent workstation and reviewed. Source images are reviewed. FINDINGS: Carotid/Vascular Structures: Common origin of the left common and right subclavian at the innominate. Common carotid arteries bifurcate into internal and external carotid arteries without significant grupo w limiting stenosis. Very minimal vascular calcification is present. Vertebral arteries are codominant. Internal carotid arteries and vertebral arteries are patent to the skull base. Cervical of [place]: Vertebral basilar system appears normal. Posterior cerebral vasculature is unrema rkable. Internal carotid arteries bifurcate normally into A1 and M1 segments. A2 segments are normal. The anterior communicating artery is patent. The right posterior communicating artery is absent. The left posterior communicating artery is absent. IMPRESSION: 1. No flow-limiting stenosis bilateral carotid bifurcations. 2. Normal [place] NASCET criteria was used in interpretation of this exam? [facility], Workstation: [id number], 11/22/2023 4:35 PM
== END | disposition home or self-care (01) ==
LOC: RADMRIMAIN 06:38
PROVIDERS: ATTEND Psychiatry & Neurology Neurology
DX: G50.0 Trigeminal neuralgia (principal); G44.1 Vascular headache, not elsewhere classified; H93.8X2 Other specified disorders of left ear; R90.82 White matter disease, unspecified; Z86.79 Personal history of other diseases of the circulatory system
CPT/HCPCS: 82565; 84520; 70496; 70498; 36415; 70553; Q9967; A9585

== ENCOUNTER → 2024-08-17 | Outpatient (CLI) | payer MEDICARE ==
--- NOTE | 2024-08-17 13:54 | XR ---
EXAMINATION TYPE: XR chest 2V DATE OF EXAM: 08/17/2024 1:44 PM COMPARISON: 03/29/2023 CLINICAL INDICATION: Male, 73 years old with history of Z51.81 THERAPUT DRUG LEVEL MONITORING (PT ON AMIODARONE), , TECHNIQUE: Frontal and lateral views FINDINGS: The cardiomediastinal silhouette, aorta, and pulmonary vasculature are within normal limits. There is hyperinflation. Otherwise, lungs and pleural spaces are clear. IMPRESSION: COPD. No acute process seen. [facility], Workstation: [email or web address], 08/17/2024 1:51 PM
[2024-08-17 22:07] LABS: ALT 21 U/L (10-49); AST 22 U/L (14-35); Albumin/Globulin Ratio 1.67 Ratio (1.60-3.17); Alkaline Phosphatase 95 U/L (41-126); Bilirubin, Conjugated <0.20 mg/dL (0.20-0.40); Bilirubin,Unconjugated >0.10 mg/dL (0.20-1.00); Globulin 2.4 g/dL (1.6-3.3); T4, Free (Free Thyroxine) 1.28 ng/dL (0.80-1.80); Total Bilirubin 0.3 mg/dL (0.3-1.2); Total Protein 6.4 g/dL (6.2-8.2)
== END | disposition home or self-care (01) ==
LOC: LABWHC1 13:26
PROVIDERS: ATTEND Family Medicine
DX: I48.0 Paroxysmal atrial fibrillation (principal); E78.5 Hyperlipidemia, unspecified; J44.9 Chronic obstructive pulmonary disease, unspecified
CPT/HCPCS: 36415; 71046; 80053; 80061; 80076; 84439; 84443

== ENCOUNTER → 2024-08-19 | Outpatient (CLI) | payer MEDICARE ==
[2024-08-19 14:21] LABS: Basophils # (A) 0.06 X 10*3/uL (0.00-0.10); Basophils % (A) 0.9 %; Eosinophils # (A) 0.15 X 10*3/uL (0.04-0.35); Eosinophils % (A) 2.2 %; HCT 40.8 % (39.6-50.0); HGB 13.7 g/dL (13.0-17.0); Lymphocytes % (A) 30.8 %; MCH 32.2 pg (27.0-32.0); MCHC 33.6 g/dL (32.0-37.0); Mean Platelet Volume 10.1 FL (9.5-12.2); Monocytes % (A) 10.3 %; NRBC Per 100 WBC 0 X 10*3/uL (0.00-0.01); Neutrophils # (A) 3.79 X 10*3/uL (1.80-7.70); Neutrophils % (A) 55.5 %; Platelet Count 233 X 10*3/uL (140-440); RBC 4.25 X 10*6/uL (4.40-5.60); WBC 6.82 X 10*3/uL (4.50-10.00)
== END | disposition home or self-care (01) ==
LOC: LABWHC1 09:50
PROVIDERS: ATTEND Family Medicine
DX: I48.0 Paroxysmal atrial fibrillation (principal); E78.5 Hyperlipidemia, unspecified
CPT/HCPCS: 36415; 83036; 85025